=== PATIENT | male | born 1980 | race Hispanic/Latino ===

== ENCOUNTER 2019-08-19 14:03 | Emergency (ER) | payer OTHER, SELFPAY ==
[2019-08-19 14:16] VITALS: BP 135/71; PULSE 64; RESP 20; TEMP 36.9; O2SAT 99
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
== END 2019-08-19 15:05 | disposition home or self-care (01) ==
PROVIDERS: Emergency Provider Nurse Practitioner Family
DX: J02.9 Acute pharyngitis, unspecified (principal); F41.9 Anxiety disorder, unspecified; K21.9 Gastro-esophageal reflux disease without esophagitis
CPT/HCPCS: 87081; 87880; 99213; G0463

== ENCOUNTER 2019-09-29 06:54 | Emergency (ER) | payer OTHER, SELFPAY ==
[2019-09-29 06:57] VITALS: BP 129/83; PULSE 60; RESP 18; TEMP 36.1; O2SAT 100
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
[2019-09-29] MEDS: IBUPROFEN 600 MG TABLET PO (07:16)
[2019-09-29] MEDS: CLINDAMYCIN HCL 150 MG CAP 300 MG PO (07:16)
== END 2019-09-29 07:22 | disposition home or self-care (01) ==
PROVIDERS: Emergency Provider Emergency Medicine
DX: K02.9 Dental caries, unspecified (principal); F41.9 Anxiety disorder, unspecified; K21.9 Gastro-esophageal reflux disease without esophagitis
CPT/HCPCS: 99283; A9270

== ENCOUNTER 2020-02-03 15:47 | Emergency (ER) | payer OTHER, SELFPAY ==
--- NOTE | ~2020-02-03 | XR_ITS ---
EXAMINATION: XR chest 1V portable DATE: 02/03/2020 16:39 INDICATION: Cough. Chest pain. Shortness of breath. TECHNIQUE: A single frontal view of the chest was obtained on 2 radiographs. COMPARISON: Chest 2 views 01/06/2018 FINDINGS: The chest demonstrates clear lungs without pneumonia, pleural effusion, or pneumothorax. Th e heart size is normal. IMPRESSION: 1. No acute cardiopulmonary disease. Reviewed, dictated and finalized at location A.
[2020-02-03 15:51] VITALS: BP 147/82; PULSE 76; RESP 18; TEMP 35.9; O2SAT 100
--- NOTE | 2020-02-03 16:03 | ECG_ITS ---
Measurements Intervals [place] Rate: 66 P: 40 NC: 156 QRS: 10 QRSD: 106 T: 8 QT: 386 QTc: 404 Interpretive Statements SINUS RHYTHM ST ELEVATION IN ANTEROLAT/HIGH LAT LEADS- PROBABLY EARLY REPOLARIZATION BORDERLINE T WAVE ABNORMALITY- INFERIOR LEADS BORDERLINE ECG Electronically Signed On 02-03-2020 16:35:53 CDT by Uziel Mariee D.O.
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
[2020-02-03 16:10] VITALS: BP 136/68; PULSE 69; RESP 18; O2SAT 98
== END 2020-02-03 17:41 | disposition home or self-care (01) ==
LOC: ANHED 16:11
PROVIDERS: Emergency Provider Emergency Medicine
DX: J06.9 Acute upper respiratory infection, unspecified (principal); Z20.828 Contact with and (suspected) exposure to other viral communicable diseases; F41.9 Anxiety disorder, unspecified; K21.9 Gastro-esophageal reflux disease without esophagitis; R94.31 Abnormal electrocardiogram [ECG] [EKG]
CPT/HCPCS: 71045; 93005; 99284

== ENCOUNTER 2020-07-07 16:10 | Outpatient (CLI) | payer OTHER, SELFPAY ==
--- NOTE | ~2020-07-07 | CT_ITS ---
EXAMINATION: CT abdomen wo con EXAM DATE: 07/07/2020 16:37 INDICATION: Upper abdominal pain. TECHNIQUE: Spiral CT of the abdomen was performed without contrast. Axial, coronal and sagittal dory ges were reviewed. The dose-length product (DLP) for this examination was 752.25 mGy-cm. The exposu re was tailored according to patient size (auto mA exposure control), and iterative reconstruction (A SIR) was used as additional dose reduction technique. Comparison is made to prior examination from 11/03/2017. FINDINGS: The liver, spleen, adrenal glands and pancreas are unremarkable. Gallbladder is unremarkab le. No biliary obstruction. There is no nephrolithiasis or hydronephrosis. There is no retroperi toneal lymphadenopathy. The appendix is normal. The stomach and small bowel are unremarkable. There is expected amount of c olonic stool. No free intraperitoneal gas. The heart is normal in size. There are no pericardial or pleural effusions. Small scattered regions of faint bilateral peripheral predominant slightly gr oundglass opacity, atelectasis or nonspecific pneumonitis. The bones are unremarkable. IMPRESSION: Small scattered regions of lung basilar groundglass opacity, atelectasis or nonspecific p neumonitis. Difficult to exclude early COVID pneumonia given community prevalence. Reviewed, dictated and finalized at location B. RATOR INSPECTOR IMPRESSION: Small scattered regions of lung basilar groundglass opacity, atelec tasis or nonspecific pneumonitis. Difficult to exclude early COVID pneumonia gi harsh community prevalence.
== END 2020-07-07 16:11 | disposition home or self-care (01) ==
PROVIDERS: PCP Physician Assistant; Visit Provider Physician Assistant
DX: R10.9 Unspecified abdominal pain (principal); R91.8 Other nonspecific abnormal finding of lung field
CPT/HCPCS: 74150

== ENCOUNTER 2020-09-12 19:32 | Emergency (ER) | payer OTHER, SELFPAY ==
--- NOTE | ~2020-09-12 | XR_ITS ---
XR shoulder LT min 2V DATE: 09/12/2020 19:57 INDICATION: Pain for 2 days and left clavicle and proximal humerus TECHNIQUE: 4 views COMPARISON: None FINDINGS: No fracture or dislocation or. Normal alignment at the acromioclavicular and glenohumeral j oints. No abnormal soft tissue calcification. IMPRESSION: Negative Reviewed, dictated and finalized at location A. IMPRESSION: Negative
[2020-09-12 19:35] VITALS: BP 150/92; PULSE 75; RESP 16; TEMP 36.1; O2SAT 99
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
[2020-09-12 20:44] VITALS: BP 142/78; PULSE 76; RESP 18; O2SAT 99
== END 2020-09-12 20:45 | disposition home or self-care (01) ==
PROVIDERS: Emergency Provider Emergency Medicine; PCP Physician Assistant
DX: M25.512 Pain in left shoulder (principal); F41.9 Anxiety disorder, unspecified; K21.9 Gastro-esophageal reflux disease without esophagitis
CPT/HCPCS: 73030; 99283

== ENCOUNTER 2020-09-20 16:16 | Outpatient (CLI) | payer OTHER, SELFPAY ==
--- NOTE | ~2020-09-20 | XR_ITS ---
EXAMINATION: XR chest 2V 09/20/2020 16:42 INDICATION: Dyspnea. Right-sided rib pain. PROCEDURE: 2 view chest COMPARISON: Comparison to multiple prior studies sequentially, with oldest reviewed study dated 06/26. FINDINGS: The lungs are clear. The cardiomediastinal silhouette is within normal limits. There are no pleural effusions. There is no pneumothorax suspected. IMPRESSION: 1: NO ACUTE CARDIOPULMONARY DISEASE. Reviewed, dictated and finalized at location A.
== END 2020-09-20 16:17 | disposition home or self-care (01) ==
PROVIDERS: PCP Physician Assistant; Visit Provider Physician Assistant
DX: R10.11 Right upper quadrant pain (principal); R06.00 Dyspnea, unspecified
CPT/HCPCS: 71046

== ENCOUNTER 2020-09-25 10:47 | Outpatient (CLI) | payer OTHER, SELFPAY ==
[2020-09-25 11:28] LABS: Basophils Absolute Auto 0.1 K/mm3 (0.0-0.1); Basophils Percent Auto 1.2 % (0.2-1.2); Eosinophils Absolute Auto 0.1 K/mm3 (0-0.3); Eosinophils Percent Auto 1.4 % (0-4.4); Hematocrit 40.1 % (42.0-52.0); Hemoglobin 13.5 g/dL (14.0-18.0); Immature Granulocyte Absolute 0.01 K/mm3 (0.00-0.031); Immature Granulocyte Percent A 0.2 % (0-0.5); Lymphocytes Absolute Auto 2.22 K/mm3 (0.9-3.2); Lymphocytes Percent Auto 38.1 % (18.3-44.2); Mean Corpuscular HGB Conc 33.7 g/dl (32-36); Mean Corpuscular Hemoglobin 29.9 pg (26-34); Mean Corpuscular Volume 88.7 fl (80-100); Mean Platelet Volume 10.3 fl (7.4-10.4); Monocytes Absolute Auto 0.5 K/mm3 (0.1-0.6); Monocytes Percent Auto 8.4 % (2.6-8.5); Neutrophils Percent Auto 50.7 % (45.5-73.1); Platelet Count Result 277 k/mm3 (150-375); Red Blood Count 4.52 M/mm3 (4.6-6.20); Red Cell Distribution Width 12.2 % (11.5-14.5); White Blood Count 5.8 K/mm3 (4.5-10.0)
[2020-09-25 11:41] LABS: Hemoglobin A1C 5.9 % (<5.7)
[2020-09-25 11:43] LABS: Alanine Aminotransferase 33 U/L (4-50); Albumin Level 4.7 g/dL (3.5-5.1); Alkaline Phosphatase 70 U/L (38-126); Amylase 63 U/L (30-110); Anion Gap 7 mmol/L (8-16); Aspartate Amino Transferase 33 U/L (17-59); Bilirubin,Total 0.4 mg/dL (0.2-1.3); Blood Urea Nitrogen 18 mg/dL (9-20); Calcium 8.9 mg/dL (8.4-10.2); Carbon Dioxide 27 mmol/L (22-30); Chloride 106 mmol/L (98-107); Estimated Glomerular Filt Rate > 60; Glucose 103 mg/dL (75-110); Lipase 68 U/L (23-300); Potassium 4.5 mmol/L (3.4-5.0); Sodium 140 mmol/L (137-145)
== END 2020-09-25 10:48 | disposition home or self-care (01) ==
LOC: ANHLAB 10:50
PROVIDERS: PCP Physician Assistant; Visit Provider Physician Assistant
DX: R10.11 Right upper quadrant pain (principal); R73.03 Prediabetes
CPT/HCPCS: 36415; 80053; 82150; 83036; 83690; 85025

== ENCOUNTER 2020-10-07 08:04 | Outpatient (CLI) | payer OTHER, SELFPAY ==
--- NOTE | ~2020-10-07 | CT_ITS ---
EXAMINATION: CT abdomen wo con DATE: 10/07/2020 08:27 INDICATION: Abdominal pain TECHNIQUE: Computed tomography (CT) of the abdomen and pelvis was performed without intravenous contr ast. The dose-length product was 659.43 mGy-cm. Automated exposure control and iterative reconstructi on technique were employed. COMPARISON: CT dated 07/07/2020 FINDINGS: Lung bases are unremarkable. Heart size normal. No significant pleural or pericardial effus ion. The liver, spleen, pancreas, adrenal glands and kidneys are unremarkable. Gallbladder is present . Nonobstructive bowel gas pattern. No significant vascular abnormality. No lymphadenopathy. No free ai r or free fluid. Tiny fat-containing umbilical hernia. No significant bone or joint abnormality. IMPRESSION: 1. No acute abdominal abnormality. Reviewed, dictated and finalized at location A.
== END 2020-10-07 08:05 | disposition home or self-care (01) ==
LOC: ANHIMG 08:05
PROVIDERS: PCP Physician Assistant; Visit Provider Physician Assistant
DX: R10.9 Unspecified abdominal pain (principal)
CPT/HCPCS: 74150

== ENCOUNTER 2020-10-23 10:08 | Outpatient (RCR) | payer OTHER, SELFPAY ==
--- NOTE | 2020-10-23 10:59 | PTOPEVAL ---
PHYSICAL THERAPY EVALUATION AND PLAN OF CARE Thank you for referring Elie Espinoza to [facility].? The patient is scheduled to be seen for therapy? 1x/week for 4 weeks. Please review, sign, date and return this plan of care CINTHYA. I agree with and certify that the following plan of care is medically necessary. Referring Physician Date Attending Provider: Natali Mcghee, PA Evaluation Gastrointestinal History Hx Gastroesophageal Reflux Disease Yes Musculoskeletal History Hx Orthopedic Surgery Yes: left arm Hx Other Musculoskeletal Disorders Yes: herniated disk Hematological History Psychosocial History Hx Depression Yes Diagnosis left shoulder pain Onset 6months Subjective Information reports pain in the left Query Text:As Reported By Patient/ shoulder and up to the neck. Family States that both hands go numb when he sleeps. States that both shoulders hurt, but the left is worse. Since the shoulder has started bothering , he has started to get headaches. 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 Hand Dominance Right Self Report Pain Assessment Left Shoulder(s) Reported Pain Level 2 Pain Description Aching,Numbness Pain Frequency Chronic,Intermittent Lowest Pain Intensity 1 Greatest Pain Intensity 5 Other Pain Aggravating Factors lifting, carrying, work activities Pain Behaviors None Interventions Used Interventions Used By Clinicians Exercise,Joint Mobilization Pain Relief Interventions Used By None Patient Upper Extremity Range of Motion Scapular/ Shoulder Range of Motion Bilateral Shoulder Flexion - Active 115 Shoulder Abduction - Active 100 Shoulder Medial Rotation - Active L1 Query Text:Reach Behind the Back Shoulder Lateral Rotation - Active ear lobe Query Text:Reach Behind the Head Scapular/Shoulder Range of Motion Muscle Length Restriction Limitations Upper Extremity Muscle Strength Testing Scapular/Shoulder Bilateral Shoulder Flexion Strength 5 Normal Shoulder Extension Strength 5 Normal Shoulder Abduction Strength 5 Normal Shoulder Medial Rotation Strength 5 Normal Shoulder Lateral Rotation Strength 4+ Good + Muscle Length Testing Muscle Length Testing Scalene Group Muscle Length (R) Moderate Tightness,(L) Query Text: Moderate Tightness Latissmus Dorsi Muscle Length (R) Severe Tightness,(L) Severe Tightness Upper Tra
--- NOTE | 2020-11-02 07:46 | PCPTNOTE ---
Patient did not show up for scheduled appointment this date. Called and left message that his next appointment is 11/09/20 at 1000.
--- NOTE | 2020-11-09 10:22 | PCPTNOTE ---
Patient did not show up for scheduled appointment this date.
--- NOTE | 2020-11-16 07:45 | PCPTNOTE ---
Patient did not show up for scheduled appointment this date.
--- NOTE | 2020-11-16 07:46 | PCPTNOTE ---
PHYSICAL THERAPY DISCHARGE NOTE Attending Provider: Natali Mcghee, NEELAM Patient:Elie Espinoza Date of :1980 Patient has not returned for any further treatments since 10/23/2020, therefore will be discharged at this time. Patient?s initial visit was on 10/23/2020nd had a total of 1 visit. The goals have not been met. Thank you for referring this patient to [facility]. Please review, sign, date and return this discharge summary CINTHYA. I have been updated about the patient's current status and I agree with discharge from the above service at this time. Referring Physician Date
== END 2021-01-09 13:51 | disposition home or self-care (01) ==
LOC: ANHPT 10:08
PROVIDERS: PCP Physician Assistant; Visit Provider Physician Assistant
DX: M25.512 Pain in left shoulder (principal)
CPT/HCPCS: 97161

== ENCOUNTER 2021-01-13 09:02 | Emergency (ER) | payer OTHER, SELFPAY ==
[2021-01-13 09:11] VITALS: BP 133/75; PULSE 60; RESP 16; TEMP 36.7; O2SAT 99
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
== END 2021-01-13 09:50 | disposition home or self-care (01) ==
PROVIDERS: Emergency Provider Nurse Practitioner
DX: K52.9 Noninfective gastroenteritis and colitis, unspecified (principal); F41.9 Anxiety disorder, unspecified; K21.9 Gastro-esophageal reflux disease without esophagitis
CPT/HCPCS: 99213; G0463

== ENCOUNTER 2021-05-29 08:56 | Emergency (ER) | payer OTHER, SELFPAY ==
--- NOTE | ~2021-05-29 | XR_ITS ---
EXAMINATION: XR chest 1V portable DATE: 05/29/2021 10:04 INDICATION: Cough. TECHNIQUE: A single frontal view of the chest was obtained on 2 radiographs. COMPARISON: Chest 2 views 09/20/2020, CT abdomen and pelvis 10/07/2020 FINDINGS: The chest demonstrates clear lungs without pneumonia, pleural effusion, or pneumothorax. Th e heart size is normal. IMPRESSION: 1. No acute cardiopulmonary disease. Reviewed, dictated and finalized at location B. [employer] PERFORM[employer]
[2021-05-29 08:59] VITALS: BP 138/90; PULSE 85; RESP 20; TEMP 36.7; O2SAT 99
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
[2021-05-30 03:58] LABS: SARS-CoV-2 RNA PCR Negative
== END 2021-05-29 10:52 | disposition home or self-care (01) ==
PROVIDERS: Emergency Provider Emergency Medicine; PCP Physician Assistant
DX: B34.9 Viral infection, unspecified (principal); J06.9 Acute upper respiratory infection, unspecified; F41.9 Anxiety disorder, unspecified; K21.9 Gastro-esophageal reflux disease without esophagitis; Z20.822 Contact with and (suspected) exposure to COVID-19; Z88.0 Allergy status to penicillin
CPT/HCPCS: 71045; 87804; 99283; C9803; U0003; U0005

== ENCOUNTER 2021-10-03 13:45 | Emergency (ER) | payer OTHER, SELFPAY ==
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
[2021-10-03 13:53] VITALS: BP 160/101; PULSE 100; RESP 16; TEMP 36.9; O2SAT 99
[2021-10-03 14:23] VITALS: BP 146/79
== END 2021-10-03 14:17 | disposition home or self-care (01) ==
PROVIDERS: Emergency Provider Nurse Practitioner Family
DX: J02.9 Acute pharyngitis, unspecified (principal)
CPT/HCPCS: 87081; 87880; 99213; G0463

== ENCOUNTER 2021-12-15 12:08 | Emergency (ER) | payer OTHER, SELFPAY ==
[2021-12-15 12:16] VITALS: BP 136/80; PULSE 60; RESP 16; TEMP 36.6; O2SAT 98
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
== END 2021-12-15 13:13 | disposition home or self-care (01) ==
PROVIDERS: Emergency Provider Nurse Practitioner; PCP Physician Assistant
DX: J06.9 Acute upper respiratory infection, unspecified (principal); Z20.822 Contact with and (suspected) exposure to COVID-19; K21.9 Gastro-esophageal reflux disease without esophagitis; F41.9 Anxiety disorder, unspecified
CPT/HCPCS: 87081; 87426; 87880; 99213; C9803; G0463

== ENCOUNTER 2022-03-11 19:09 | Emergency (ER) | payer OTHER, SELFPAY ==
[2022-03-11 19:42] VITALS: BP 132/86; PULSE 62; RESP 16; TEMP 36.2; O2SAT 100
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
== END 2022-03-11 20:40 | disposition home or self-care (01) ==
PROVIDERS: Emergency Provider Preventive Medicine Aerospace Medicine; PCP Physician Assistant
DX: B35.6 Tinea cruris (principal); F41.9 Anxiety disorder, unspecified; K21.9 Gastro-esophageal reflux disease without esophagitis
CPT/HCPCS: 99283

== ENCOUNTER 2022-03-31 11:08 | Emergency (ER) | payer OTHER, SELFPAY ==
[2022-03-31 11:29] VITALS: BP 163/88; PULSE 70; RESP 16; TEMP 36.1; O2SAT 100
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
== END 2022-03-31 12:02 | disposition home or self-care (01) ==
PROVIDERS: Emergency Provider Nurse Practitioner Family; PCP Physician Assistant
DX: B35.6 Tinea cruris (principal); K21.9 Gastro-esophageal reflux disease without esophagitis; F41.9 Anxiety disorder, unspecified
CPT/HCPCS: 99213; G0463

== ENCOUNTER 2022-07-02 02:40 | Emergency (ER) | payer OTHER, SELFPAY ==
[2022-07-02 02:53] VITALS: BP 133/82; PULSE 70; RESP 16; TEMP 36.1; O2SAT 100
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
[2022-07-02 03:27] VITALS: BP 129/94; RESP 20
[2022-07-02 03:29] VITALS: PULSE 62; RESP 14; O2SAT 98
[2022-07-02 03:30] VITALS: PULSE 61; RESP 17; O2SAT 96
[2022-07-02] MEDS: hydrOXYzine HCL 25 MG TABLET PO (03:30)
== END 2022-07-02 03:39 | disposition home or self-care (01) ==
LOC: ANHED 03:33
PROVIDERS: Emergency Provider Emergency Medicine; PCP Physician Assistant
DX: F41.9 Anxiety disorder, unspecified (principal); K21.9 Gastro-esophageal reflux disease without esophagitis; F32.A Depression, unspecified
CPT/HCPCS: 99283; A9270

== ENCOUNTER 2022-11-17 17:40 | Emergency (ER) | payer OTHER, SELFPAY ==
--- NOTE | ~2022-11-17 | XR_ITS ---
EXAMINATION: XR abdomen obstructive series DATE: 11/17/2022 19:52 INDICATION: Rectal pressure. Mid-lower abdominal pain. TECHNIQUE: Supine and upright views of the abdomen. FINDINGS: No prior studies for comparison. The visualized lung parenchyma is normal.. There is a nonobstructive bowel gas pattern. Gas and stool are seen throughout the colon to the level of the rectum. There is no free air. IMPRESSION: 1. No acute abdominal abnormality. Reviewed, dictated and finalized at location A.
[2022-11-17 18:07] VITALS: BP 135/79; PULSE 78; RESP 16; TEMP 36.4; O2SAT 97
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
== END 2022-11-17 20:15 | disposition home or self-care (01) ==
PROVIDERS: Emergency Provider Emergency Medicine; PCP Physician Assistant
DX: K62.89 Other specified diseases of anus and rectum (principal); F41.9 Anxiety disorder, unspecified; K21.9 Gastro-esophageal reflux disease without esophagitis
CPT/HCPCS: 74019; 99283

== ENCOUNTER 2023-05-07 18:28 | Emergency (ER) | payer OTHER, SELFPAY ==
[2023-05-07 18:30] VITALS: BP 155/83; PULSE 74; RESP 16; TEMP 36.1; O2SAT 100
--- NOTE | 2023-05-08 00:15 | PC.NURSE ---
pt. to desk stating they are going home.
== END 2023-05-08 01:02 | disposition left against medical advice (07) ==
PROVIDERS: PCP Physician Assistant
DX: L98.9 Disorder of the skin and subcutaneous tissue, unspecified (principal)
CPT/HCPCS: 99199

== ENCOUNTER 2023-05-08 18:04 | Emergency (ER) | payer OTHER, SELFPAY ==
[2023-05-08 18:13] VITALS: BP 137/69; PULSE 85; RESP 18; TEMP 36.8; O2SAT 95
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
== END 2023-05-08 18:52 | disposition home or self-care (01) ==
PROVIDERS: Emergency Provider Registered Nurse; PCP Physician Assistant
DX: L02.416 Cutaneous abscess of left lower limb (principal); F41.9 Anxiety disorder, unspecified; K21.9 Gastro-esophageal reflux disease without esophagitis
CPT/HCPCS: 10060; 99213; G0463

== ENCOUNTER 2023-07-07 10:39 | Emergency (ER) | payer OTHER, SELFPAY ==
[2023-07-07 10:49] VITALS: BP 151/84; PULSE 69; RESP 16; TEMP 36.6; O2SAT 99
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
== END 2023-07-07 12:22 | disposition home or self-care (01) ==
PROVIDERS: Emergency Provider Nurse Practitioner Family; PCP Physician Assistant
DX: J06.9 Acute upper respiratory infection, unspecified (principal); R05.9 Cough, unspecified; K21.9 Gastro-esophageal reflux disease without esophagitis; F41.9 Anxiety disorder, unspecified
CPT/HCPCS: 99213; G0463

== ENCOUNTER 2023-07-13 03:10 | Emergency (ER) | payer OTHER, SELFPAY ==
[2023-07-13 03:19] VITALS: BP 157/97; PULSE 63; RESP 18; TEMP 36.6; O2SAT 97
[2023-07-13 04:40] LABS: Strep Group A RT-PCR NOT DETECTED (Negative)
[2023-07-13 04:50] LABS: Influenza A QL RT-PCR Negative (Negative); Influenza B QL RT-PCR Negative (Negative); RSV RNA, RT-PCR Negative (Negative); SARS-CoV-2 RNA PCR Negative (Negative)
[2023-07-13 05:07] VITALS: BP 140/95; PULSE 65; RESP 18; O2SAT 96
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
[2023-07-13] MEDS: KETOROLAC 15 MG/ML VIAL (*BKC) IV PUSH (06:15)
[2023-07-13 06:32] VITALS: BP 132/95; PULSE 64; RESP 20; O2SAT 98
== END 2023-07-13 06:32 | disposition home or self-care (01) ==
PROVIDERS: Emergency Provider Emergency Medicine; PCP Physician Assistant
DX: J02.9 Acute pharyngitis, unspecified (principal); Z20.822 Contact with and (suspected) exposure to COVID-19; F41.9 Anxiety disorder, unspecified; K21.9 Gastro-esophageal reflux disease without esophagitis
CPT/HCPCS: 87637; 87651; 96374; 99284; J1100; J1885

== ENCOUNTER 2024-01-06 12:14 | Emergency (ER) | payer OTHER, SELFPAY ==
--- NOTE | ~2024-01-06 | XR_ITS ---
XR wrist LT min 3V Ordering provider: Joan Sierra APRN History: . twisting injury t-1 . Comparison: None. FINDINGS: BONES: No acute fracture or dislocation. No definite scaphoid fracture. JOINT SPACES: Well maintained. SOFT TISSUES: Normal. IMPRESSION: No acute osseous abnormality left wrist. Reviewed, dictated and finalized at location A.
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
[2024-01-06 12:29] VITALS: BP 153/81; PULSE 69; RESP 18; TEMP 36.8; O2SAT 98
== END 2024-01-06 13:10 | disposition home or self-care (01) ==
PROVIDERS: Emergency Provider Nurse Practitioner; PCP Physician Assistant
DX: S63.502A Unspecified sprain of left wrist, initial encounter (principal); S66.912A Strain of unspecified muscle, fascia and tendon at wrist and hand level, left hand, initial encounter; X58.XXXA Exposure to other specified factors, initial encounter; K21.9 Gastro-esophageal reflux disease without esophagitis; F41.9 Anxiety disorder, unspecified
CPT/HCPCS: 73110; 99213; G0463

== ENCOUNTER 2024-03-04 20:38 | Emergency (ER) | payer OTHER, SELFPAY ==
--- NOTE | ~2024-03-04 | XR_ITS ---
EXAMINATION: XR chest 2V DATE: 03/04/2024 21:16 INDICATION: Left chest pain. Shortness of breath. TECHNIQUE: Frontal and lateral views of the chest were obtained. COMPARISON: Chest single view 05/29/2021 FINDINGS: There is no pneumonia, pleural effusion, or pneumothorax. The heart size is normal. IMPRESSION: 1. No acute cardiopulmonary disease. Reviewed, dictated and finalized at location A.
[2024-03-04 21:00] VITALS: BP 140/85; PULSE 67; RESP 15; TEMP 36.3; O2SAT 99
--- NOTE | 2024-03-04 21:03 | ECG_ITS ---
Test Date: 2024-03-04 21:06:52 Measurements Intervals Continental Rate: 64 P: 38 AR: 153 QRS: 4 QRSD: 105 T: 22 QT: 388 QTc: 402 Interpretive Statements SINUS RHYTHM MODERATE VOLTAGE CRITERIA FOR LVH, CONSIDER NORMAL VARIANT [MEETS CRITERIA IN ONE OF: R(aVL), S(V1), R(V5), R(V5/V6)+S(V1)] NONSPECIFIC T-WAVE ABNORMALITY No previous ECG available for comparison Electronically Signed On 03-05-2024 10:39:22 CDT by Thanh Orta M.D.
[2024-03-04 21:18] LABS: Basophils Absolute Auto 0.1 K/mm3 (0.0-0.1); Basophils Percent Auto 1.2 % (0.2-1.2); Eosinophils Absolute Auto 0.1 K/mm3 (0-0.3); Hematocrit 40.7 % (42.0-52.0); Hemoglobin 13.7 g/dL (14.0-18.0); Immature Granulocyte Absolute 0.01 K/mm3 (0.00-0.031); Immature Granulocyte Percent A 0.2 % (0-0.5); Lymphocytes Percent Auto 42.1 % (18.3-44.2); Mean Corpuscular HGB Conc 33.7 g/dl (32-36); Mean Corpuscular Hemoglobin 30.2 pg (26-34); Mean Corpuscular Volume 89.8 fl (80-100); Mean Platelet Volume 10.7 fl (7.4-10.4); Monocytes Absolute Auto 0.6 K/mm3 (0.1-0.6); Monocytes Percent Auto 9.4 % (2.6-8.5); Neutrophils Absolute Auto 2.7 K/mm3 (1.3-6.7); Neutrophils Percent Auto 45.1 % (45.5-73.1); Platelet Count Result 255 k/mm3 (150-375); Red Blood Count 4.53 M/mm3 (4.6-6.20); Red Cell Distribution Width 12.4 % (11.5-14.5); White Blood Count 5.9 K/mm3 (4.5-10.0)
[2024-03-04 21:29] LABS: Alanine Aminotransferase 38 U/L (6-50); Albumin Level 4.8 g/dL (3.5-5.1); Alkaline Phosphatase 66 U/L (38-126); Anion Gap 6 mmol/L (4-12); Aspartate Amino Transferase 36 U/L (17-59); Bilirubin,Total 0.4 mg/dL (0.2-1.3); Blood Urea Nitrogen 21 mg/dL (9-20); Calcium 9.1 mg/dL (8.4-10.2); Carbon Dioxide 28 mmol/L (22-30); Chloride 102 mmol/L (98-107); Estimated CRCL calculation 87 ml/min; Estimated Glomerular Filt Rate > 60; Glucose 114 mg/dL (65-110); Lipase 99 U/L (23-300); Potassium 4.1 mmol/L (3.4-5.0); Sodium 136 mmol/L (137-145)
[2024-03-04 21:32] LABS: Partial Thromboplastin Time 23.3 Seconds (22.3-36.8)
[2024-03-04 21:41] LABS: Troponin I < 0.012 ng/mL (0.000-0.034)
[2024-03-05 00:06] VITALS: BP 137/85; PULSE 66; RESP 16; TEMP 36.4; O2SAT 99
--- NOTE | 2024-03-05 00:10 | ECG_ITS ---
Test Date: 2024-03-05 00:10:12 Measurements Intervals [place] Rate: 56 P: 51 NH: 162 QRS: 2 QRSD: 106 T: 18 QT: 415 QTc: 401 Interpretive Statements SINUS BRADYCARDIA MODERATE VOLTAGE CRITERIA FOR LVH, CONSIDER NORMAL VARIANT [MEETS CRITERIA IN ONE OF: R(aVL), S(V1), R(V5), R(V5/V6)+S(V1)] Compared to ECG 03/04/2024 21:06:52 Sinus rhythm no longer present T-wave abnormality no longer present Electronically Signed On 03-05-2024 10:40:14 CDT by Thanh Orta M.D.
[2024-03-05 00:42] LABS: Troponin I < 0.012 ng/mL (0.000-0.034)
[2024-03-05 01:00] VITALS: BP 136/92; PULSE 58; RESP 18; O2SAT 98
[2024-03-05 01:01] VITALS: PULSE 58
[2024-03-05 02:24] VITALS: O2SAT 96
[2024-03-05] MEDS: SODIUM CHLORIDE 0.9% IV 1,000 ML 999 ML IV CONT (02:41)
[2024-03-05 02:43] VITALS: BP 122/80; PULSE 61; RESP 19; O2SAT 98
[2024-03-05] MEDS: PROCHLORPERAZINE EDISYLATE 10 MG/2 ML VIAL IV PUSH (02:43)
[2024-03-05] MEDS: diphenhydrAMINE HCl INJ 50 MG/ML VIAL IV PUSH (02:43)
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
[2024-03-05 03:44] LABS: Troponin I < 0.012 ng/mL (0.000-0.034)
== END 2024-03-05 04:12 | disposition home or self-care (01) ==
PROVIDERS: Emergency Provider Emergency Medicine; PCP Physician Assistant
DX: R07.89 Other chest pain (principal); R51.9 Headache, unspecified; K21.9 Gastro-esophageal reflux disease without esophagitis; F41.9 Anxiety disorder, unspecified; R94.31 Abnormal electrocardiogram [ECG] [EKG]; R00.1 Bradycardia, unspecified
CPT/HCPCS: 36415; 71046; 80053; 83690; 84484; 85025; 85610; 85730; 93005; 96361; 96374; 96375; 99284; J0780; J1200; J7030

== ENCOUNTER 2024-10-15 14:12 | Emergency (ER) | payer OTHER, SELFPAY ==
--- NOTE | ~2024-10-15 | CT_ITS ---
CT abdomen pelvis wo con Ordering provider: Elenita Aquino History: 43 years Male with . flank pain . Comparison: None. Technique: CT abdomen and pelvis without IV and without oral contrast. Automated exposure control and iterative reconstruction technique were employed. The dose-length product was 517.75 mGy-cm. Findings: VISUALIZED LOWER CHEST: Dependent atelectatic changes. UPPER ABDOMINAL ORGANS: Liver: Normal. Gallbladder: Contracted. Spleen: Normal. Stomach/duodenum: Normal. Pancreas: Normal. Adrenals: Normal. Kidneys: Normal. PELVIC ORGANS: The bladder is normal. BOWEL AND MESENTERY: Colon: No evidence of diverticulitis.. Fecal material is loaded in the colon. Normal appendix. Small Bowel: Normal. No obstruction. Peritoneum/mesentery: No free air or free fluid. No mesenteric lymphadenopathy. RETROPERITONEUM: Normal aorta. No retroperitoneal lymphadenopathy. MUSCULOSKELETAL: Superficial soft tissues: Small left fat-containing inguinal hernia. Otherwise, The superficial soft tissues are normal. Bones: Age appropriate degenerative changes of the spine. Sclerotic lesion in the posterior right reynold tabulum. IMPRESSION: 1. No evidence of appendicitis, diverticulitis or intestinal obstruction. No kidney stones. 2. Constipation. Reviewed, dictated and finalized at location A. IMPRESSION: 1. No evidence of appendicitis, diverticulitis or intestinal obstruction. No k idney stones. 2. Constipation.
--- OUTSIDE RECORDS SUMMARY | 2024-10-15 14:15 | XMS_ITS | Patient Health Record ---
Author Organization [facility] Address [address] [place] [address] Care Team Providers Care Courtroom Reporter Name Role Phone Franc Dickinson Primary Care Provider Reason For Referral No Information Immunizations Vaccine Route Administration Date Status Comme nts COVID-19 Moderna 1ST IM Intramuscular 09/07/2020 Administe red COVID-19 Moderna 2nd IM Intramuscular 10/05/2020 Administe red Plan Of Treatment No Information
--- OUTSIDE RECORDS SUMMARY | 2024-10-15 14:15 | XMS_ITS | Clinical Summary ---
Author Organization 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 Gender Identity Not on file Sexual Orientation Not on file Plan of Treatment Health Maintenance Due Date Last Done Comments Hepatitis C Virus (HCV) Screening 1981 TdaP Immunization 1981 Hepatitis B Immunization (1 of 3 - 19+ 3-dose series) 2000 Influenza Immunization (#1) 2024 SARS-COV-2 Immunization ( - 2023-25 season) 2024 Respiratory Syncytial Virus (RSV) Immunization (Adult) (1 - 1-dose 75+ series) 2056 Meningococcal Immunization (ACWY) Aged Out No longer eligible based on patient's age to complete this topic Pneumococcal Immunization Combined Aged Out No longer eligible based on patient's age to complete this topic Rotavirus Immunization Aged Out No lo nger eligible based on patient's age to complete this topic
[2024-10-15 14:56] VITALS: BP 144/82; PULSE 69; RESP 16; TEMP 36.2; O2SAT 100
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
[2024-10-15 21:10] LABS: Basophils Absolute Auto 0.1 K/mm3 (0.0-0.1); Basophils Percent Auto 0.8 % (0.2-1.2); Eosinophils Absolute Auto 0.1 K/mm3 (0-0.3); Eosinophils Percent Auto 1.6 % (0-4.4); Hematocrit 41.9 % (42.0-52.0); Hemoglobin 13.3 g/dL (14.0-18.0); Immature Granulocyte Absolute 0.01 K/mm3 (0.00-0.031); Immature Granulocyte Percent A 0.2 % (0-0.5); Lymphocytes Absolute Auto 2.71 K/mm3 (0.9-3.2); Lymphocytes Percent Auto 42.4 % (18.3-44.2); Mean Corpuscular HGB Conc 31.7 g/dl (32-36); Mean Corpuscular Hemoglobin 29.1 pg (26-34); Mean Corpuscular Volume 91.7 fl (80-100); Mean Platelet Volume 10.6 fl (7.4-10.4); Monocytes Absolute Auto 0.6 K/mm3 (0.1-0.6); Monocytes Percent Auto 9.5 % (2.6-8.5); Neutrophils Absolute Auto 2.9 K/mm3 (1.3-6.7); Neutrophils Percent Auto 45.5 % (45.5-73.1); Platelet Count Result 243 k/mm3 (150-375); Red Blood Count 4.57 M/mm3 (4.6-6.20); Red Cell Distribution Width 12.4 % (11.5-14.5); White Blood Count 6.4 K/mm3 (4.5-10.0)
[2024-10-15 21:21] LABS: Alanine Aminotransferase 34 U/L (6-50); Albumin Level 4.8 g/dL (3.5-5.1); Alkaline Phosphatase 65 U/L (38-126); Anion Gap 9 mmol/L (4-12); Aspartate Amino Transferase 32 U/L (17-59); Bilirubin,Total 0.4 mg/dL (0.2-1.3); Blood Urea Nitrogen 19 mg/dL (9-20); Calcium 9.1 mg/dL (8.4-10.2); Carbon Dioxide 27 mmol/L (22-30); Chloride 104 mmol/L (98-107); Estimated CRCL calculation 136 ml/min; Estimated Glomerular Filt Rate > 60; Glucose 97 mg/dL (65-110); Potassium 4.3 mmol/L (3.4-5.0); Sodium 140 mmol/L (137-145)
[2024-10-15 21:30] LABS: Add Urine Microscopic? YES; Appearance Urine Clear (Clear); Bilirubin Urine Negative (Negative); Blood Urine Negative (Negative); Glucose Urine UA 1+ mg/dL (Negative); Ketones Urine Negative (Negative); Leukocyte Esterase Ur Negative LEU/UL (Negative); Nitrate Urine Negative (Negative); Protein Urine Negative (Negative); Specific Grav Ur 1.026 (1.001-1.035)
[2024-10-15 21:32] LABS: Color Urine Light Orange (Yellow)
--- OUTSIDE RECORDS SUMMARY | 2024-10-15 21:47 | XMS_ITS | Clinical Summary ---
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
[2024-10-15] MEDS: LACTATED RINGERS 1,000 ML 999 ML IV CONT ×2 (21:59)
[2024-10-15 22:00] LABS: Creatine Kinase 154 U/L (55-170)
[2024-10-16 00:42] VITALS: BP 122/81; PULSE 55; RESP 16; TEMP 36.5; O2SAT 98
== END 2024-10-16 00:21 | disposition home or self-care (01) ==
PROVIDERS: Emergency Medicine; Emergency Provider Student in an Organized Health Care Education/Training Program; PCP Physician Assistant
DX: E86.0 Dehydration (principal); K21.9 Gastro-esophageal reflux disease without esophagitis; F41.9 Anxiety disorder, unspecified
CPT/HCPCS: 36415; 74176; 80053; 81001; 82550; 85025; 96360; 99284; J7120

== ENCOUNTER 2024-12-06 18:58 | Emergency (ER) | payer OTHER, SELFPAY ==
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
[2024-12-06 19:27] LABS: EDCOVIDSCREEN Negative (Negative); EDINFLUASCREEN Negative (Negative); EDINFLUBSCREEN Negative (Negative); EDSTREPNEGPOS1 Negative (Negative)
== END 2024-12-06 19:35 | disposition home or self-care (01) ==
PROVIDERS: Emergency Provider Nurse Practitioner; PCP Physician Assistant
DX: J06.9 Acute upper respiratory infection, unspecified (principal); Z20.822 Contact with and (suspected) exposure to COVID-19; K21.9 Gastro-esophageal reflux disease without esophagitis; F41.9 Anxiety disorder, unspecified
CPT/HCPCS: 87081; 87426; 87804; 87880; 99213; G0463

== ENCOUNTER 2024-12-09 14:12 | Emergency (ER) | payer OTHER, SELFPAY ==
--- NOTE | ~2024-12-09 | XR_ITS ---
XR chest 2V Ordering provider: Shannon Lorenz History: 43 years Male with . cough . Comparison: March 04, 2024 FINDINGS: MEDIASTINUM: The cardiac silhouette is not enlarged. LUNGS: No infiltrates, effusions or pneumothorax. OTHER: No free air under the diaphragm. Degenerative changes of the spine. IMPRESSION: No acute cardiopulmonary pathology. Reviewed, dictated and finalized at location A.
--- OUTSIDE RECORDS SUMMARY | 2024-12-09 14:15 | XMS_ITS | Clinical Summary ---
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 Brusher Operator Name Role Phone Natali Mcghee Primary Care Provider + Allergies Active Allergy Reactions Criticality Noted Date Comments Penicillins Other (See comments),Stomach upset Low 07/26/2011 Stomach/GI Upset unknown Medications acetaminophen (TYLENOL) 500 mg tablet Take 1 tablet (500 mg total) by mouth every 6 (six) hours as needed for pain 30 tablet 10/19/2024 Active cyclobenzaprine (FLEXERIL) 10 mg tablet Take 1 tablet (10 mg total) by mouth 2 (two) times a day as needed for muscle spasms 20 tablet 10/19/2024 Active Encounters Date Type Department Care Team Description 10/19/2024 4:12 PM CDT - 10/19/2024 6:35 PM CDT Emergency [facility] Emergency Department [address] [place] [id number] Acute bilateral low back pain without sciatica (Primary Dx) Discharge Disposition: Discharge to home or self care from Last 3 Months Social History Tobacco Use Types Packs/Day Years Used Date Smoking Tobacco: Never Assessed Personal Safety Answer Date Recorded Have you ever been in or are you currently in a harmful physical or emotional relationship or is someone making you feel afraid or unsafe? 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 Gender Identity Not on file Sexual Orientation Not on file Last Filed Vital Signs Vital Sign Reading Time Taken Comments Blood Pressure 132/85 10/19/2024 6:20 PM CDT Pulse 67 10/19/2024 6:20 PM CDT Temperature 37 C (98.6 F) 10/19/2024 3:03 PM CDT Respiratory Rate 18 10/19/2024 6:20 PM CDT Oxygen Saturation 97% 10/19/2024 6:20 PM CDT Inhaled Oxygen Concentration - - Weight 121.5 kg (267 lb 13.7 oz) 10/19/2024 3:03 PM CDT Height - - Body Mass Index - - Plan of Treatment Health Maintenance Due Date Last Done Comments Depression Screening 1981 Hepatitis C Screening 1981 DTaP/Tdap/Td Vaccine (1 - Tdap) 1992 Varicella Vaccines (1 of 2 - 13+ 2-dose series) 1994 Hepatitis B Screening 12/14/1999 Regular Well Visit/Exam 18-64 12/14/1999 Covid-19 Vaccine (3 - 2023-2 5 season) 2024 10/05/2020, 09/07/2020 Influenza Vaccine (Season Ended) 2025 HPV Vaccines Aged Out No longer eligi ble based on patient's age to complete this topic Pneumococcal vaccine <65 Aged Out No longer eligible based on patient's age to complete this topic Procedures Procedure Name Priority Date/Time Associated Diagnosis Comments TROPONIN T HIGH-SENSITIVITY 2-HOUR Timed 10/19/2024 5:31 PM CDT N. GONORRHOEAE/C. TRACHOMATIS AMPLIFICATION STAT 10/19/2024 4:[address] ABDOMEN PELVIS WO CONTRAST ED 10/19/2024 4:07 PM CDT URINALYSIS AND REFLEX TO MICROSCOPIC AND CULTURE STAT 10/19/2024 3:14 PM CDT TROPONIN T HIGH-SENSITIVITY SERIES (BASELINE, 2HR, 4HR, 6HR) STAT 10/19/2024 3:12 PM CDT EGFR STAT 10/19/2024 3:12 PM CDT DIFFERENTIAL AUTO STAT 10/19/2024 3:1 2 PM CDT LIPASE STAT 10/19/2024 3:12 PM CDT COMPREHENSIVE METABOLIC PANEL STAT 10/19/2024 3:12 PM CDT CBC WITH AUTO DIFFERENTIAL STAT 10/19/2024 3:12 PM CDT ECG 12-LEAD STAT 10/19/2024 3:11 PM CDT from Last 3 Months Results * Troponin T high-sensitivity 2-hour (10/19/2024 5:31 PM CDT) Pathologist [facility] Trop T hs 7 <=22 ng/L Comment: Interpretive Data For further hscTnT resources including the diagnostic algorithm and an aid in interpretation, copy and paste this link: https://nrl.testcatalog.org/show/hsTrop Current Interpretive Data last revised 2020. Testing performed by: [address] [address] Trop T hs delta 1 ng/L EDMUND ROB Comment:Testing performed by : [address] [address] Trop T hs interp Insignificant EDMUND ROB Comment:Testing performed by : [address] [address] Blood 10/19/2024 5:31 PM CDT 10/19/2024 5:35 PM CDT us Mala RICHTER LAB BLOOD ORDERABLES Final Resu lt EDMUND ROB [address] [facility] Department [place] [address] * N. gonorrhoeae/C. trachomatis Amplification Urine (10/19/2024 4:45 PM CDT) [facility] C. trachomatis Not Detected Not Detected Comment:Testing performed by : [address] [address] N. gonorrhoeae Not Detected Not Detected EDMUND ROB Comment: Interpretive Data This assay detects Chlamydia trachomatis and Neisseria gonorrhoeae by nucleic acid amplification testing (NAAT). This assay has been cleared by the [place] Food and Drug administration. The performance characteristics of this test have been verified by the [facility]. The performance characteristics of this test have not been evaluated in individuals less than 14 years of age. Current Interpretive Data last revised 2023. Testing performed by: [facility], [address] [place] [address]., [address] Urine (None) 10/19/2024 4:45 PM CDT 10/19/2024 4:53 PM CDT [place] Nena RICHTER LAB MICROBIOLOGY - GEN ERAL ORDERABLES Final Result EDMUND [address] [facility] Department [place] [address] * CT Abdomen Pelvis WO Contrast (10/19/2024 4:07 PM CDT) Anatomical Region Laterality Modality Body N/A Computed Tomogra phy 10/19/2024 4:40 PM CDT Narrative 10/19/2024 4:45 PM CDT EXAM DESCRIPTION: CT ABDOMEN PELVIS WO CONTRAST REASON FOR STUDY: Abdominal/flank pain, stone suspected Bilat Abdominal/flank pain, stone suspected TECHNIQUE: CT scan of the abdomen and pelvis performed without intravenous and without oral contrast using helical scanning technique. Reconstructed coronal and sagittal MPR images reviewed. All images stored on PACS. Automated exposure control was used as a dose optimization technique for this examination. COMPARISON: CT abdomen and pelvis 07/26/2011 FINDINGS: The sensitivity for detection of visceral lesions is diminished without the use of intravenous contrast. LOWER CHEST: No significant pulmonary abnormalities. No effusion. Gynecomastia. LIVER: Normal size. Mild diffuse hepatic steatosis. GALLBLADDER: No stones identified. No wall thickening or inflammatory changes. BILE DUCTS: No intrahepatic or extrahepatic ductal dilatation. SPLEEN: Normal size. No focal lesions. PANCREAS: Unremarkable for noncontrast technique. ADRENALS: Normal. KIDNEYS/URINARY TRACT: No identified significant cystic or solid masses. No stones. No hydronephrosis or hydroureter. Urinary bladder is unremarkable. GI: No dilated bowel loops. No obvious wall thickening. Normal appendix. Scattered diverticular disease without diverticulitis. PERITONEUM: No ascites or free air. RETROPERITONEUM: No lymphadenopathy by CT criteria. There are a few prominent retroperitoneal lymph nodes measuring up to 8 mm in short axis which are likely reactive. REPRODUCTIVE: No significant abnormality. VASCULATURE: No abdominal aortic aneurysm. MUSCULOSKELETAL: Moderate degenerative disease at L5-S1. left L5-S1 neural foraminal stenosis. No acute fracture. OTHER: Trace fat containing left inguinal hernia. IMPRESSION: No acute abnormality in the abdomen or pelvis. No evidence of renal calculi or hydronephrosis. Mild hepatic steatosis. Mild colonic diverticulosis. THIS IS AN ELECTRONICALLY VERIFIED FINAL REPORT 10/19/2024 4:45 PM - Electronically signed by Stu Romero M.D. MM: MM Report ID: [id number] Reading Location: [id number] Procedure Note Stu Romero MD - 10/19/2024 EXAM DESCRIPTION: CT ABDOMEN PELVIS WO CONTRAST REASON FOR STUDY: Abdominal/flank pain, stone suspected Bilat Abdominal/flank pain, stone suspected TECHNIQUE: CT scan of the abdomen and pelvis performed without intravenousand without oral contrast using helical scanning technique. Reconstructed coronal and sagittal MPR images reviewed. All images stored on PACS.Automated exposure control was used as a dose optimization technique for this examination. COMPARISON: CT abdomen and pelvis 07/26/2011 FINDINGS: The sensitivity for detection of visceral lesions is diminished without the use of intravenous contrast. LOWER CHEST: No significant pulmonary abnormalities. No effusion. Gynecomastia. LIVER: Normal size. Mild diffuse hepatic steatosis. GALLBLADDER: No stones identified. No wall thickening or inflammatory changes. BILE DUCTS: No intrahepatic or extrahepatic ductal dilatation. SPLEEN: Normal size. No focal lesions. PANCREAS: Unremarkable for noncontrast technique. ADRENALS: Normal. KIDNEYS/URINARY TRACT: No identified significant cystic or solid masses.No stones. No hydronephrosis or hydroureter. Urinary bladder isunremarkable. GI: No dilated bowel loops. No obvious wall thickening. Normal appendix. Scattered diverticular disease without diverticulitis. PERITONEUM: No ascites or free air. RETROPERITONEUM: No lymphadenopathy by CT criteria. There are a few prominent retroperitoneal lymph nodes measuring up to 8 mm in short axiswhich are likely reactive. REPRODUCTIVE: No significant abnormality. VASCULATURE: No abdominal aortic aneurysm. MUSCULOSKELETAL: Moderate degenerative disease at L5-S1. left L5-C2fqjevy foraminal stenosis. No acute fracture. OTHER: Trace fat containing left inguinal hernia. IMPRESSION: No acute abnormality in the abdomen or pelvis. No evidence of renal calculi or hydronephrosis. Mild hepatic steatosis. Mild colonic diverticulosis. THIS IS AN ELECTRONICALLY VERIFIED FINAL REPORT 10/19/2024 4:45 PM - Electronically signed by Stu Romero M.D. MM: MM Report ID: [id number] Reading Location: [place] [address] Mala RICHTER [facility] [place]ED[place] Final Result * (ABNORMAL) Urinalysis reflex to microscopic and culture Urine (10/19/2024 3:14 PM CDT) Color, ur Straw Yellow Comment:Testing performed by : [address] [address] Clarity, ur Clear Clear EDMUND Comment:Testing performed by : [address] [address] Specific gravity, ur 1.017 1.003 - 1.030 EDMUND Comment:Testing performed by : [address] [address] pH, urine 7.0 EDMUND Comment: Interpretive Data U rine pH is affected by diet, medications, systemic acid-base disturbances, and renal tubular function. pH may affect urinary stone formation. For example, urine pH below 6.0 may help reduce the tendency for calcium phosphate stones and pH greater than 6.0 may reduce the tendency for uric acid stone formation. Source: [employer] Current Interpretive Data was last revised on 2017 Testing performed by: [address] [address] Protein, ur ql Negative Negative EDMUND Comment:Testing performed by : [facility], [address] [place] [address], [place]., [address] Glucose, ur ql 3+(A) Negative EDMUND Comment:Testing performed by : [address], [place]., [address] Ketones, ur Negative Negative EDMUND Comment:Testing performed by : [address], [place]., [address] Bilirubin, ur Negative Negative EDMUND Comment:Testing performed by : [address], [place]., [address] Blood, ur Negative Negative EDMUND Comment:Testing performed by : [address], [place]., [address] Urobilinogen, ur <2.0 <2.0 mg/dL EDMUND Comment:Testing performed by : [address], [place]., [address] Nitrite, ur Negative Negative EDMUND Comment:Testing performed by : [address], [place]., [address] Leukocyte esterase, ur Negative Negative EDMUND Comment:Testing performed by : [address], [place]., [address] UA reflex comment Reflex conditions for microscopic UA and culture not met. EDMUND Comment:Testing performed by : [address], [place]., [address] Urine 10/19/2024 3:14 PM CDT 10/19/2024 3:17 PM CDT Mala RICHTER LAB MICROBIOLOGY - GENERAL ORDJosefina RUSSO Final Result EDMUND [address] [facility] Department [place] [address] * Troponin T high-sensitivity series (baseline, 2hr, 4hr, 6hr) (10/19/2024 3:12 PM CDT) Trop T hs <6 <=22 ng/L Comment: Interpretive Data For further hscTnT resources including the diagnostic algorithm and an aid in interpretation, copy and paste this link: https://nrl.testcatalog.org/show/hsTrop Current Interpretive Data last revised 2020. Testing performed by: [address] [address] Blood 10/19/2024 3:12 PM CDT 10/19/2024 3:17 PM CDT Mala RICHTER LAB BLOOD ORDERABLES Final Resu lt Performing Organization Address [facility] Co de Phone Number EDMUND [address] [email or web address] [address] * eGFR (10/19/2024 3:12 PM CDT) eGFR >90 >=60 mL/min/1. 73 m2 Comment: Interpretive Data Reference Interval Normal >/= 90 mL/min/1.73m2 Mildly decreased* 60 - 89 mL/min/1.73m2 Mildly to moderately decreased 45 - 59 mL/min/1.73m2 Moderately to severely decreased 30 - 44 mL/min/1.73m2 Severely decreased 15 - 29 mL/min/1.73m2 Kidney Failure < 15 mL/min/1.73m2 *Relative to young adult level Estimated glomerular filtration rate is determined by the 2020 CKD-EPI equation recommended by the National Kidney Foundation (A Unifying Approach to GFR Estimation: Recommendations of the NKF-ASK Task Force on Reassessing the Inclusion of Race in Diagnosing Kidney Disease, JASN 2020). The CKD-EPI equation should not be used for patients with unstable renal function and has not been validated in children and those over 70. Current interpretive data was last reviewed 2021. Testing performed by: [address] [address] Blood 10/19/2024 3:12 PM CDT 10/19/2024 3:17 PM CDT Mala RICHTER LAB BLOOD ORDERABLES Final Resu lt Performing Organization Address City/[facility]/ZIP Co de Phone Number EDMUND [address] [place] [address] * Differential, auto (10/19/2024 3:12 PM CDT) Neutrophil abs 4.11 1.50 - 6.50 K/cumm Comment:Testing performed by : [address] [address] Imm gran abs 0.02 0.00 - 0.10 K/cumm EDMUND Comment:Testing performed by : [address] [address] Lymphocyte abs 2.16 0.80 - 3.30 K/cumm [facility] Comment:Testing performed by : [address] [address] Monocyte abs 0.59 0.20 - 0.80 K/cumm [facility] Comment:Testing performed by : [address] [address] Eosinophil abs 0.08 0.00 - 0.50 K/cumm [facility] Comment:Testing performed by : [address] [address] Basophil abs 0.07 0.00 - 0.10 K/cumm [facility] Comment:Testing performed by : [address] [address] Neutrophil pct 58.5 % [facility] Comment: Interpretive Data Percent cell count reference ranges are not reported, since discordance with absolute values may lead to misinterpretation of CBC data. Current Interpretive Data was last revised on 2017. Testing performed by: [address] [address] Imm gran pct 0.3 % [facility] Comment: Interpretive Data Percent cell count reference ranges are not reported, since discordance with absolute values may lead to misinterpretation of CBC data. Current Interpretive Data was last revised on 2017. Testing performed by: [address] [address] Lymphocyte pct 30.7 % [facility] Comment: Interpretive Data Percent cell count reference ranges are not reported, since discordance with absolute values may lead to misinterpretation of CBC data. Current Interpretive Data was last revised on 2017. Testing performed by: [address] [address] Monocyte pct 8.4 % EDMUND Comment: Interpretive Data Percent cell count reference ranges are not reported, since discordance with absolute values may lead to misinterpretation of CBC data. Current Interpretive Data was last revised on 2017. Testing performed by: [address] [address] Eosinophil pct 1.1 % EDMUND Comment: Interpretive Data Percent cell count reference ranges are not reported, since discordance with absolute values may lead to misinterpretation of CBC data. Current Interpretive Data was last revised on 2017. Testing performed by: [address] [address] Basophil pct 1.0 % EDMUND Comment: Interpretive Data Percent cell count reference ranges are not reported, since discordance with absolute values may lead to misinterpretation of CBC data. Current Interpretive Data was last revised on 2017. Testing performed by: [address] [address] Blood 10/19/2024 3:12 PM CDT 10/19/2024 3:17 PM CDT Mala RICHTER LAB BLOOD ORDERABLES Final Resu lt [facility] [address] [facility] Department of Laboratories [place], [place] [id number] * CBC with auto differential (10/19/2024 3:12 PM CDT) WBC 7.03 3.80 - 9.90 K/cumm Comment:Testing performed by : [address] [address] Hgb 14.4 13.0 - 17.5 g/dL EDMUND ROB Comment:Testing performed by : [address] [address] Hct 41.8 38.9 - 50.3 % EDMUND Comment:Testing performed by : [address] [address] Plt 244 150 - 400 K/cumm EDMUND Comment:Testing performed by : [address], [address] MPV 10.5 9.1 - 12.3 fL EDMUND Comment:Testing performed by : [address] [address] RBC 4.89 4.30 - 5.80 M/cumm EDMUND Comment:Testing performed by : [address] [address] MCV 85.5 81.3 - 96.4 fL EDMUND Comment:Testing performed by : [address], [address] MCH 29.4 27.1 - 33.3 pg EDMUND Comment:Testing performed by : [address], [address] MCHC 34.4 32.3 - 35.7 g/dL EDMUND Comment:Testing performed by : [address], [address] RDW CV 12.2 11.1 - 14.9 % EDMUND Comment:Testing performed by : [address], [address] RDW SD 37.8 35.7 - 48.1 fL EDMUND Comment:Testing performed by : [address], [address] NRBC abs 0.00 0.00 - 0.01 K/cumm EDMUND Comment:Testing performed by : [address], [address] Blood Venous blood specimen / Unknown 10/19/2024 3:12 PM CDT 10/19/2024 3:17 PM CDT us Mala RICHTER LAB BLOOD ORDERABLES Final Resu lt EDMUND [address] [facility] Department [place] [address] * Lipase (10/19/2024 3:12 PM CDT) Lipase 32 10 - 99 Units/L Comment:Testing performed by : [address] [address] Blood Venous blood specimen / Unknown 10/19/2024 3:12 PM CDT 10/19/2024 3:17 PM CDT Mala RICHTER LAB BLOOD ORDERABLES Final Resu lt [facility] [address] [facility] [place] [address] * (ABNORMAL) Comprehensive metabolic panel (10/19/2024 3:12 PM CDT) Pathologist [facility] Sodium 140 135 - 145 mmol/L Comment:Testing performed by : [address] [address] Potassium, pl 3.9 3.3 - 4.9 mmol/L EDMUND Comment:Testing performed by : [address] [address] Chloride 103 97 - 110 mmol/L EDMUND Comment:Testing performed by : [address] [address] CO2 25 22 - 32 mmol/L EDMUND Comment:Testing performed by : [address] [address] Anion gap 12 2 - 15 mmol/L EDMUND Comment:Testing performed by : [address] [address] BUN 16 6 - 25 mg/dL EDMUND Comment:Testing performed by : [address] [address] Creatinine 0.70(L) 0.80 - 1.30 mg/dL EDMUND Comment:Testing performed by : [address] [address] Glucose 136 70 - 199 mg/dL EDMUND Comment: Interpretive Data Fasting glucose >/= 126 mg/dl is diagnostic for diabetes. Fasting is defined as no caloric intake for at least 8 hours. Fasting glucose between 100 mg/dl to 125 mg/dl is diagnostic of prediabetes. In a patient with classic symptoms of hyperglycemia or hyperglycemic crisis, a random glucose >/= 200 mg/dl is diagnostic for diabetes. In the absence of unequivocal hyperglycemia, results should be confirmed by repeat testing. The classification and Diagnosis of Diabetes Diabetes Care 202; 46: S19-S40. Current interpretive data was last revised 2022. Testing performed by: [address] [address] Calcium 9.3 8.5 - 10.3 mg/dL EDMUND Comment:Testing performed by : [address] [address] Bilirubin, total 0.2 0.1 - 1.2 mg/dL EDMUND Comment:Testing performed by : [address] [address] Protein, pl 7.7 6.5 - 8.5 g/dL EDMUND Comment:Testing performed by : [address] [address] Albumin 4.6 3.5 - 5.0 g/dL EDMUND Comment:Testing performed by : [address] [address] Alk phos 80 40 - 130 Units/L EDMUND Comment:Testing performed by : [address] [address] ALT 31 7 - 55 Units/L EDMUND Comment:Testing performed by : [address] [address] AST 24 10 - 50 Units/L EDMUND Comment:Testing performed by : [address] [address] Blood 10/19/2024 3:12 PM CDT 10/19/2024 3:17 PM CDT us Mala RICHTER LAB BLOOD ORDERABLES Final Resu lt EDMUND [address] [facility] [place] [address] * ECG 12 lead (10/19/2024 3:11 PM CDT) Ventricular Rate EKG/Min 67 BPM [facility] Atrial Rate 67 BPM [facility] NH-Interval (MSEC) 144 ms [facility] QRS-Interval (MSEC) 102 ms [facility] QT-Interval (MSEC) 372 ms [facility] QTc 393 ms [facility] P [place] 32 degrees [facility] R [place] 4 degrees [facility] T [place] 6 degrees [facility] Diagnosis Normal sinus rhythm Minimal voltage criteria for LVH, may be normal variant When compared with ECG of 29-JUN-2009 17:19, No significant change was found Confirmed by SULTAN MARTIN M.D. ([id number]) on 10/19/2024 4:28:02 PM [facility] 10/19/2024 3:11 PM CDT 10/19/2024 4:28 PM CDT Mala RICHTER ECG ORDERABLES Final Result [facility] from Last 3 Months Insurance [facility] Care Teams Corduroy Brusher Operator Relationship Specialty Start Date End Date Natali Mcghee PA PCP - General Physician Insulator Tester 10/19/24
--- OUTSIDE RECORDS SUMMARY | 2024-12-09 14:15 | XMS_ITS | Clinical Summary ---
Author Organization 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
--- OUTSIDE RECORDS SUMMARY | 2024-12-09 14:15 | XMS_ITS | Patient Health Record ---
Author Organization [facility] Address [address] [place] [address] Care Team Providers Care Sr. Director Name Role Phone Franc Dickinson Primary Care Provider Reason For Referral No Information Immunizations Vaccine Route Administration Date Status Comme nts COVID-19 Moderna 2nd IM Intramuscular 10/05/2020 Administe red COVID-19 Moderna 1ST IM Intramuscular 09/07/2020 Administe red Plan Of Treatment No Information
--- OUTSIDE RECORDS SUMMARY | 2024-12-09 14:15 | XMS_ITS | Referral Summary ---
Author Organization [facility] Address [address] [place] [id number] Care Team Providers Care Assistant Executive Housekeeper Name Role Phone Natali Mcghee Primary Care Provider + Encounters Date Type Department Care Team Description 10/19/2024 4:12 PM CDT - 10/19/2024 6:35 PM CDT Emergency [facility] Emergency Department [address] [place] [id number] Acute bilateral low back pain without sciatica (Primary Dx) Discharge Disposition: Discharge to home or self care from Last 3 Months Allergies Active Allergy Reactions Criticality Noted Date [...] for muscle spasms 20 tablet 10/19/2024 Active Social History Tobacco Use Types Packs/Day Years Used Date Smoking Tobacco: Never Assessed Personal Safety Answer Date Recorded Have you ever been in or are you currently in a harmful physical or emotional relationship or is someone making you feel afraid or unsafe? 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 Testing performed by: [facility], [address] [place] [address]., [address] Trop T hs delta 1 ng/L EDMUND ROB Comment:Testing performed by : [facility], [address] [place] [address]., [address] Trop T hs interp Insignificant EDMUND ROB Comment:Testing performed by : [facility], [address] [place] [address]., [address] Blood 10/19/2024 5:31 PM CDT 10/19/2024 5:35 PM CDT Mala RICHTER LAB BLOOD ORDERABLES Final Resu lt EDMUND [address] [facility] Department [place] [address] * N. gonorrhoeae/C. trachomatis Amplification Urine (10/19/2024 4:45 PM CDT) [facility] C. trachomatis Not Detected Not Detected Comment:Testing performed by : [address] [address] N. gonorrhoeae Not Detected Not Detected EDMUND Comment: Interpretive Data This assay detects Chlamydia trachomatis and Neisseria gonorrhoeae by nucleic acid amplification testing (NAAT). This assay has been cleared by the [place] Food and Drug administration. The performance characteristics of this test have been verified by the [facility]. The performance characteristics of this test have not been evaluated in individuals less than 14 years of age. Current Interpretive Data last revised 2023. Testing performed by: [facility], [address] [place] [address]., [id number] Urine (None) 10/19/2024 4:45 PM CDT 10/19/2024 4:53 PM CDT La Nena RICHTER LAB MICROBIOLOGY - GEN ERAL ORDERABLES Final Result EDMUND [address] [facility] Department [place] [address] * CT Abdomen Pelvis WO Contrast (10/19/2024 [...] Electronically signed by Stu Romero M.D. MM: PIERCE Report ID: [id number] Reading Location: [place] [address] Procedure Note Stu Romero MD - 10/19/2024 [...] MUSCULOSKELETAL: Moderate degenerative disease at L5-S1. left [id number] foraminal stenosis. No acute fracture. OTHER: Trace fat containing left inguinal hernia. IMPRESSION: No acute abnormality in the abdomen or pelvis. No evidence of renal calculi or hydronephrosis. Mild hepatic steatosis. Mild colonic diverticulosis. THIS IS AN ELECTRONICALLY VERIFIED FINAL REPORT 10/19/2024 4:45 PM - Electronically signed by Stu Romero M.D. MM: MM Report ID: [id number] Reading Location: [place] [address] Malastephani Kearns NEELAM IMGladys CT PROCEDURES Final Result * (ABNORMAL) Urinalysis reflex to microscopic and culture Urine (10/19/2024 3:14 PM CDT) Color, ur Straw Yellow Comment:Testing performed by : [address] [address] Clarity, ur Clear Clear EDMUND Comment:Testing performed by : [address] [address] Specific gravity, ur 1.017 1.003 - 1.030 EDMUND Comment:Testing performed by : [address] [address] pH, urine 7.0 EDMUND Comment: Interpretive Data U rine pH is affected by diet, medications, systemic acid-base disturbances, and renal tubular function. pH may affect urinary stone formation. For example, urine pH below 6.0 may help reduce the tendency for calcium phosphate stones and pH greater than 6.0 may reduce the tendency for uric acid stone formation. Source: [place] [facility] Current Interpretive Data was last revised on 2017 Testing performed by: [address] [address] Protein, ur ql Negative Negative EDMUND Comment:Testing performed by : [address] [address] Glucose, ur ql 3+(A) Negative EDMUND Comment:Testing performed by : [address] [address] Ketones, ur Negative Negative EDMUND Comment:Testing performed by : [address] [address] Bilirubin, ur Negative Negative EDMUND Comment:Testing performed by : [address] [address] Blood, ur Negative Negative EDMUND Comment:Testing performed by : [address] [address] Urobilinogen, ur <2.0 <2.0 mg/dL EDMUND Comment:Testing performed by : [facility], [address] [place] [address]., [address] Nitrite, ur Negative Negative EDMUND Comment:Testing performed by : [facility], [address] [place] [address]., [address] Leukocyte esterase, ur Negative Negative EDMUND Comment:Testing performed by : [address] [address] UA reflex comment Reflex conditions for microscopic UA and culture not met. EDMUND Comment:Testing performed by : [facility], [address] [place] [address]., [address] Urine 10/19/2024 3:14 PM CDT 10/19/2024 3:17 PM CDT Mala RICHTER LAB MICROBIOLOGY - GENERAL ORDE RABLES Final Result Performing Organization Address [facility] de Phone Number [address] [place] [address] * Troponin T high-sensitivity series (baseline, 2hr, 4hr, 6hr) (10/19/2024 3:12 PM CDT) Trop T hs <6 <=22 ng/L Comment: Interpretive Data For further hscTnT resources including the diagnostic algorithm and an aid in interpretation, copy and paste this link: https://nrl.testcatalog.org/show/hsTrop Current Interpretive Data last revised 2020. Testing performed by: [address] [address] Blood 10/19/2024 3:12 PM CDT 10/19/2024 3:17 PM CDT us Mala RICHTER LAB BLOOD ORDERABLES Final Resu lt Performing Organization Address City/[facility]/ZIP Co de Phone Number JEANIE[address] [place] [address] * eGFR (10/19/2024 3:12 PM CDT) eGFR [...] was last reviewed 2021. Testing performed by: [address] [address] Blood 10/19/2024 3:12 PM CDT 10/19/2024 3:17 PM CDT us Mala RICHTER LAB BLOOD ORDERABLES Final Resu lt EDMUND [address] [facility] Department [place] [address] * Differential, auto (10/19/2024 3:12 PM CDT) Pathologist [facility] Neutrophil abs 4.11 1.50 - 6.50 K/cumm Comment:Testing performed by : [address] [address] Imm gran abs 0.02 0.00 - 0.10 K/cumm EDMUND ROB Comment:Testing performed by : [address] [address] Lymphocyte abs 2.16 0.80 - 3.30 K/cumm EDMUND ROB Comment:Testing performed by : [address] [address] Monocyte abs 0.59 0.20 - 0.80 K/cumm [facility] Comment:Testing performed by : [address] [address] Eosinophil abs 0.08 0.00 - 0.50 K/cumm [facility] Comment:Testing performed by : [address] [address] Basophil abs 0.07 0.00 - 0.10 K/cumm [facility] Comment:Testing performed by : [address] [address] Neutrophil pct 58.5 % [facility] Comment: Interpretive Data Percent cell count reference ranges are not reported, since discordance with absolute values may lead to misinterpretation of CBC data. Current Interpretive Data was last revised on 2017. Testing performed by: [address] [address] Imm gran pct 0.3 % [facility] Comment: Interpretive Data Percent cell count reference ranges are not reported, since discordance with absolute values may lead to misinterpretation of CBC data. Current Interpretive Data was last revised on 2017. Testing performed by: [address] [address] Lymphocyte pct 30.7 % [facility] Comment: Interpretive Data Percent cell count reference ranges are not reported, since discordance with absolute values may lead to misinterpretation of CBC data. Current Interpretive Data was last revised on 2017. Testing performed by: [address] [address] Monocyte pct 8.4 % [facility] Comment: Interpretive Data Percent cell count reference ranges are not reported, since discordance with absolute values may lead to misinterpretation of CBC data. Current Interpretive Data was last revised on 2017. Testing performed by: [address] [address] Eosinophil pct 1.1 % [facility] Comment: Interpretive Data Percent cell count reference ranges are not reported, since discordance with absolute values may lead to misinterpretation of CBC data. Current Interpretive Data was last revised on 2017. Testing performed by: [address] [address] Basophil pct 1.0 % EDMUND Comment: Interpretive Data Percent cell count reference ranges are not reported, since discordance with absolute values may lead to misinterpretation of CBC data. Current Interpretive Data was last revised on 2017. Testing performed by: [address] [address] Blood 10/19/2024 3:12 PM CDT 10/19/2024 3:17 PM CDT us Mala RICHTER LAB BLOOD ORDERABLES Final Resu lt EDMUND [address] [facility] Department [place] [address] * CBC with auto differential (10/19/2024 3:12 PM CDT) WBC 7.03 3.80 - 9.90 K/cumm Comment:Testing performed by : [address] [address] Hgb 14.4 13.0 - 17.5 g/dL EDMUND ROB Comment:Testing performed by : [address] [address] Hct 41.8 38.9 - 50.3 % EDMUND ROB Comment:Testing performed by : [address] [address] Plt 244 150 - 400 K/cumm EDMUND Comment:Testing performed by : [address] [address] MPV 10.5 9.1 - 12.3 fL EDMUND ROB Comment:Testing performed by : [address] [address] RBC 4.89 4.30 - 5.80 M/cumm EDMUND RBO Comment:Testing performed by : [address] [address] MCV 85.5 81.3 - 96.4 fL EDMUND ROB Comment:Testing performed by : [address] [address] MCH 29.4 27.1 - 33.3 pg EDMUND ROB Comment:Testing performed by : [address] [address] MCHC 34.4 32.3 - 35.7 g/dL EDMUND ROB Comment:Testing performed by : [address] [address] RDW CV 12.2 11.1 - 14.9 % EDMUND ROB Comment:Testing performed by : [address] [address] RDW SD 37.8 35.7 - 48.1 fL EDMUND ROB Comment:Testing performed by : [address] [address] NRBC abs 0.00 0.00 - 0.01 K/cumm EDMUND ROB Comment:Testing performed by : [address], [address] Blood Venous blood specimen / Unknown 10/19/2024 3:12 PM CDT 10/19/2024 3:17 PM CDT Mala RICHTER LAB BLOOD ORDERABLES Final Resu lt Performing Organization Address City/[facility]/ZIP Co de Phone Number [address] [place] [address] * Lipase (10/19/2024 3:12 PM CDT) Lipase 32 10 - 99 Units/L Comment:Testing performed by : [address], [address] Blood Venous blood specimen / Unknown 10/19/2024 3:12 PM CDT 10/19/2024 3:17 PM CDT Malastephani Kearns PA LAB BLOOD ORDERABLES Final Resu lt [address] [place] [address] * (ABNORMAL) Comprehensive metabolic panel (10/19/2024 3:12 PM CDT) Sodium 140 135 - 145 mmol/L Comment:Testing performed by : [address] [address] Potassium, pl 3.9 3.3 - 4.9 mmol/L EDMUND Comment:Testing performed by : [address], [place]., [address] Chloride 103 97 - 110 mmol/L [facility] Comment:Testing performed by : [address], [place]., [address] CO2 25 22 - 32 mmol/L [facility] Comment:Testing performed by : [address] [address] Anion gap 12 2 - 15 mmol/L [facility] Comment:Testing performed by : [address], [place]., [address] BUN 16 6 - 25 mg/dL [facility] Comment:Testing performed by : [address] [address] Creatinine 0.70(L) 0.80 - 1.30 mg/dL [facility] Comment:Testing performed by : [address] [address] Glucose 136 70 - 199 mg/dL [facility] Comment: Interpretive Data Fasting glucose >/= 126 [...] classification and Diagnosis of Diabetes Diabetes Care 2021; 46: S19-S40. Current interpretive data was last revised 2022. Testing performed by: [address] [address] Calcium 9.3 8.5 - 10.3 mg/dL [facility] Comment:Testing performed by : [address] [address] Bilirubin, total 0.2 0.1 - 1.2 mg/dL EDMUND ROB Comment:Testing performed by : [address] [address] Protein, pl 7.7 6.5 - 8.5 g/dL EDMUND ROB Comment:Testing performed by : [address] [address] Albumin 4.6 3.5 - 5.0 g/dL EDMUND Comment:Testing performed by : [address] [address] Alk phos 80 40 - 130 Units/L EDMUND Comment:Testing performed by : [address] [address] ALT 31 7 - 55 Units/L EDMUND Comment:Testing performed by : [address] [address] AST 24 10 - 50 Units/L EDMUND Comment:Testing performed by : [address] [address] Blood 10/19/2024 3:12 PM CDT 10/19/2024 3:17 PM CDT us Mala RICHTER LAB BLOOD ORDERABLES Final Resu lt EDMUND [address] [facility] Department [place] [address] * ECG 12 lead (10/19/2024 3:11 PM CDT) Ventricular Rate EKG/Min 67 BPM [facility] Atrial Rate [address] [facility] [place]-Interval (MSEC) [address] [facility] QRS-Interval (MSEC) [address] [facility] QT-Interval (MSEC) [address] [facility] QTc [address] [facility] P [place] [address] [facility] R [place] 4 degrees [facility] T [place] [address] [facility] Diagnosis Normal sinus rhythm Minimal voltage criteria for LVH, may be normal variant When compared with ECG of 29-JUN-2009 17:19, No significant change was found Confirmed by SULTAN MARTIN M.D. ([id number]) on 10/19/2024 4:28:02 PM [facility] 10/19/2024 3:11 PM CDT 10/19/2024 4:28 PM CDT us Mala RICHTER ECG ORDERABLES Final Result [facility] [place] from Last 3 Months Insurance [facility] Care Teams Assistant Executive Housekeeper Relationship Specialty Start Date End Date Natali Mcghee PA PCP - General Physician In Store Representative 10/19/24
[2024-12-09 14:16] VITALS: BP 134/81; PULSE 90; RESP 16; TEMP 36.4; O2SAT 98
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
--- OUTSIDE RECORDS SUMMARY | 2024-12-09 17:39 | XMS_ITS | Clinical Summary ---
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 Testing performed by: [address] [address] Trop T hs delta 1 ng/L EDMUND ROB Comment:Testing performed by : [address] [address] Trop T hs interp Insignificant EDMUND ROB Comment:Testing performed by : [address] [address] Blood 10/19/2024 5:31 PM CDT 10/19/2024 5:35 PM CDT us Mala RICHTER LAB BLOOD ORDERABLES Final Resu lt EDMUND ROB [address] [facility] [place] [address] * N. gonorrhoeae/C. trachomatis Amplification Urine (10/19/2024 4:45 PM CDT) [facility] C. trachomatis Not Detected Not Detected Comment:Testing performed by : [address] [address] N. gonorrhoeae Not Detected Not Detected EDMUND ROB Comment: Interpretive Data This assay detects Chlamydia trachomatis and Neisseria gonorrhoeae by nucleic acid amplification testing (NAAT). This assay has been cleared by the [place] Food and Drug administration. The performance characteristics of this test have been verified by the [facility]. The performance characteristics of this test have not been evaluated in individuals less than 14 years of age. Current Interpretive Data last revised 2023. Testing performed by: [facility], [address] [place] [address]., [address] Urine (None) 10/19/2024 4:45 PM CDT 10/19/2024 4:53 PM CDT La Nena RICHTER LAB MICROBIOLOGY - GEN ERAL ORDERABLES Final Result EDMUND [address] [facility] [place] [address] * CT Abdomen Pelvis WO Contrast (10/19/2024 [...] Stu Romero M.D. 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 No acute fracture. OTHER: Trace fat containing left inguinal hernia. IMPRESSION: No acute abnormality in the abdomen or pelvis. No evidence of renal calculi or hydronephrosis. Mild hepatic steatosis. Mild colonic diverticulosis. THIS IS AN ELECTRONICALLY VERIFIED FINAL REPORT 10/19/2024 4:45 PM - Electronically signed by Stu Romero M.D. MM: MM Report ID: [id number] Reading Location: [place] [address] Mala RICHTER [facility] [place] PROCEDURES Final Result * (ABNORMAL) Urinalysis reflex to microscopic and culture Urine (10/19/2024 3:14 PM CDT) Color, ur Straw Yellow Comment:Testing performed by : [address] [address] Clarity, ur Clear Clear EDMUND Comment:Testing performed by : [address] [address] Specific gravity, ur 1.017 1.003 - 1.030 EDMUND Comment:Testing performed by : [address] [address] pH, urine 7.0 EDMUND Comment: Interpretive Data U rine pH is affected by diet, medications, systemic acid-base disturbances, and renal tubular function. pH may affect urinary stone formation. For example, urine pH below 6.0 may help reduce the tendency for calcium phosphate stones and pH greater than 6.0 may reduce the tendency for uric acid stone formation. Source: [employer] Current Interpretive Data was last revised on 2017 Testing performed by: [address] [address] Protein, ur ql Negative Negative EDMUND Comment:Testing performed by : [facility], [address] [place] [address], [place]., [address] Glucose, ur ql 3+(A) Negative EDMUND Comment:Testing performed by : [address], [place]., [address] Ketones, ur Negative Negative EDMUND Comment:Testing performed by : [address], [place]., [address] Bilirubin, ur Negative Negative EDMUND Comment:Testing performed by : [address], [place]., [address] Blood, ur Negative Negative EDMUND Comment:Testing performed by : [address], [place]., [address] Urobilinogen, ur <2.0 <2.0 mg/dL EDMUND Comment:Testing performed by : [address], [place]., [address] Nitrite, ur Negative Negative EDMUND Comment:Testing performed by : [address], [place]., [address] Leukocyte esterase, ur Negative Negative EDMUND Comment:Testing performed by : [address], [place]., [address] UA reflex comment Reflex conditions for microscopic UA and culture not met. EDMUND Comment:Testing performed by : [address], [place]., [address] Urine 10/19/2024 3:14 PM CDT 10/19/2024 3:17 PM CDT Mala RICHTER LAB MICROBIOLOGY - GENERAL ORDJosefina RUSSO Final Result EDMUND [address] [facility] Department [place] [address] * Troponin T high-sensitivity series (baseline, 2hr, 4hr, 6hr) (10/19/2024 3:12 PM CDT) Trop T hs <6 <=22 ng/L Comment: Interpretive Data For further hscTnT resources including the diagnostic algorithm and an aid in interpretation, copy and paste this link: https://nrl.testcatalog.org/show/hsTrop Current Interpretive Data last revised 2020. Testing performed by: [address] [address] Blood 10/19/2024 3:12 PM CDT 10/19/2024 3:17 PM CDT Mala RICHTER LAB BLOOD ORDERABLES Final Resu lt Performing Organization Address [facility] Co de Phone Number EDMUND [address] [place] [address] * eGFR (10/19/2024 3:12 PM CDT) eGFR [...] was last reviewed 2021. Testing performed by: [address] [address] Blood 10/19/2024 3:12 PM CDT 10/19/2024 3:17 PM CDT Mala RICHTER LAB BLOOD ORDERABLES Final Resu lt Performing Organization Address City/[facility]/ZIP Co de Phone Number EDMUND [address] [place] [address] * Differential, auto (10/19/2024 3:12 PM CDT) Neutrophil abs 4.11 1.50 - 6.50 K/cumm Comment:Testing performed by : [address] [address] Imm gran abs 0.02 0.00 - 0.10 K/cumm EDMUND Comment:Testing performed by : [address] [address] Lymphocyte abs 2.16 0.80 - 3.30 K/cumm [facility] Comment:Testing performed by : [address] [address] Monocyte abs 0.59 0.20 - 0.80 K/cumm [facility] Comment:Testing performed by : [address] [address] Eosinophil abs 0.08 0.00 - 0.50 K/cumm [facility] Comment:Testing performed by : [address] [address] Basophil abs 0.07 0.00 - 0.10 K/cumm [facility] Comment:Testing performed by : [address] [address] Neutrophil pct 58.5 % [facility] Comment: Interpretive Data Percent cell count reference ranges are not reported, since discordance with absolute values may lead to misinterpretation of CBC data. Current Interpretive Data was last revised on 2017. Testing performed by: [address] [address] Imm gran pct 0.3 % [facility] Comment: Interpretive Data Percent cell count reference ranges are not reported, since discordance with absolute values may lead to misinterpretation of CBC data. Current Interpretive Data was last revised on 2017. Testing performed by: [address] [address] Lymphocyte pct 30.7 % [facility] Comment: Interpretive Data Percent cell count reference ranges are not reported, since discordance with absolute values may lead to misinterpretation of CBC data. Current Interpretive Data was last revised on 2017. Testing performed by: [address] [address] Monocyte pct 8.4 % EDMUND Comment: Interpretive Data Percent cell count reference ranges are not reported, since discordance with absolute values may lead to misinterpretation of CBC data. Current Interpretive Data was last revised on 2017. Testing performed by: [address] [address] Eosinophil pct 1.1 % EDMUND Comment: Interpretive Data Percent cell count reference ranges are not reported, since discordance with absolute values may lead to misinterpretation of CBC data. Current Interpretive Data was last revised on 2017. Testing performed by: [address] [address] Basophil pct 1.0 % EDMUND Comment: Interpretive Data Percent cell count reference ranges are not reported, since discordance with absolute values may lead to misinterpretation of CBC data. Current Interpretive Data was last revised on 2017. Testing performed by: [address] [address] Blood 10/19/2024 3:12 PM CDT 10/19/2024 3:17 PM CDT Mala RICHTER LAB BLOOD ORDERABLES Final Resu lt [facility] [address] [facility] Department of Laboratories [place], [place] [id number] * CBC with auto differential (10/19/2024 3:12 PM CDT) WBC 7.03 3.80 - 9.90 K/cumm Comment:Testing performed by : [address] [address] Hgb 14.4 13.0 - 17.5 g/dL EDMUND ROB Comment:Testing performed by : [address] [address] Hct 41.8 38.9 - 50.3 % EDMUND Comment:Testing performed by : [address] [address] Plt 244 150 - 400 K/cumm EDMUND Comment:Testing performed by : [address], [address] MPV 10.5 9.1 - 12.3 fL EDMUND Comment:Testing performed by : [address] [address] RBC 4.89 4.30 - 5.80 M/cumm EDMUND Comment:Testing performed by : [address] [address] MCV 85.5 81.3 - 96.4 fL EDMUND Comment:Testing performed by : [address], [address] MCH 29.4 27.1 - 33.3 pg EDMUND Comment:Testing performed by : [address], [address] MCHC 34.4 32.3 - 35.7 g/dL EDMUND Comment:Testing performed by : [address], [address] RDW CV 12.2 11.1 - 14.9 % EDMUND Comment:Testing performed by : [address], [address] RDW SD 37.8 35.7 - 48.1 fL EDMUND Comment:Testing performed by : [address], [address] NRBC abs 0.00 0.00 - 0.01 K/cumm EDMUND Comment:Testing performed by : [address], [address] Blood Venous blood specimen / Unknown 10/19/2024 3:12 PM CDT 10/19/2024 3:17 PM CDT us Mala RICHTER LAB BLOOD ORDERABLES Final Resu lt EDMUND [address] [facility] Department [place] [address] * Lipase (10/19/2024 3:12 PM CDT) Lipase 32 10 - 99 Units/L Comment:Testing performed by : [address] [address] Blood Venous blood specimen / Unknown 10/19/2024 3:12 PM CDT 10/19/2024 3:17 PM CDT Mala RICHTER LAB BLOOD ORDERABLES Final Resu lt [facility] [address] [facility] Department [place] [address] * (ABNORMAL) Comprehensive metabolic panel (10/19/2024 3:12 PM CDT) Pathologist [facility] Sodium 140 135 - 145 mmol/L Comment:Testing performed by : [address] [address] Potassium, pl 3.9 3.3 - 4.9 mmol/L EDMUND Comment:Testing performed by : [address] [address] Chloride 103 97 - 110 mmol/L EMDUND Comment:Testing performed by : [address] [address] CO2 25 22 - 32 mmol/L EDMUND Comment:Testing performed by : [address] [address] Anion gap 12 2 - 15 mmol/L EDMUND Comment:Testing performed by : [address] [address] BUN 16 6 - 25 mg/dL EDMUND Comment:Testing performed by : [address] [address] Creatinine 0.70(L) 0.80 - 1.30 mg/dL EDMUND Comment:Testing performed by : [address] [address] Glucose 136 70 - 199 mg/dL EDMUND [...] was last revised 2022. Testing performed by: [address] [address] Calcium 9.3 8.5 - 10.3 mg/dL EDMUND Comment:Testing performed by : [address] [address] Bilirubin, total 0.2 0.1 - 1.2 mg/dL EDMUND Comment:Testing performed by : [address] [address] Protein, pl 7.7 6.5 - 8.5 g/dL EDMUND Comment:Testing performed by : [address] [address] Albumin 4.6 3.5 - 5.0 g/dL EDMUND Comment:Testing performed by : [address] [address] Alk phos 80 40 - 130 Units/L EDMUND Comment:Testing performed by : [address] [address] ALT 31 7 - 55 Units/L EDMUND Comment:Testing performed by : [address] [address] AST 24 10 - 50 Units/L EDMUND Comment:Testing performed by : [address] [address] Blood 10/19/2024 3:12 PM CDT 10/19/2024 3:17 PM CDT us Mala RICHTER LAB BLOOD ORDERABLES Final Resu lt EDMUND [address] [facility] [place] [address] * ECG 12 lead (10/19/2024 3:11 PM CDT) Ventricular Rate EKG/Min 67 BPM [facility] Atrial Rate 67 BPM [facility] IN-Interval (MSEC) 144 ms [facility] QRS-Interval (MSEC) 102 ms [facility] QT-Interval (MSEC) 372 ms [facility] QTc 393 ms [facility] P [place] 32 degrees [facility] R [place] 4 degrees [facility] T [place] 6 degrees [facility] Diagnosis Normal sinus rhythm Minimal voltage criteria for LVH, may be normal variant When compared with ECG of 29-JUN-2009 17:19, No significant change was found Confirmed by SULTAN MARTIN M.D. ([id number]) on 10/19/2024 4:28:02 PM [facility] 10/19/2024 3:11 PM CDT 10/19/2024 4:28 PM CDT Mala RICHTER ECG ORDERABLES Final Result [facility] from Last 3 Months Insurance [facility] Care Teams Drawing Checker Relationship Specialty Start Date End Date Natali Mcghee PA PCP - General Physician Programming Director 10/19/24
--- OUTSIDE RECORDS SUMMARY | 2024-12-09 17:39 | XMS_ITS | Clinical Summary ---
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
--- OUTSIDE RECORDS SUMMARY | 2024-12-09 17:39 | XMS_ITS | Referral Summary ---
Author Organization 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 Testing performed by: [facility], [address] [place] [address]., [address] Trop T hs delta 1 ng/L EDMUND ROB Comment:Testing performed by : [facility], [address] [place] [address]., [address] Trop T hs interp Insignificant EDMUND ROB Comment:Testing performed by : [facility], [address] [place] [address]., [address] Blood 10/19/2024 5:31 PM CDT 10/19/2024 5:35 PM CDT Mala RICHTER LAB BLOOD ORDERABLES Final Resu lt EDMUND [address] [facility] Department [place] [address] * N. gonorrhoeae/C. trachomatis Amplification Urine (10/19/2024 4:45 PM CDT) [facility] C. trachomatis Not Detected Not Detected Comment:Testing performed by : [address] [address] N. gonorrhoeae Not Detected Not Detected EDMUND Comment: Interpretive Data This assay detects Chlamydia trachomatis and Neisseria gonorrhoeae by nucleic acid amplification testing (NAAT). This assay has been cleared by the [place] Food and Drug administration. The performance characteristics of this test have been verified by the [facility]. The performance characteristics of this test have not been evaluated in individuals less than 14 years of age. Current Interpretive Data last revised 2023. Testing performed by: [facility], [address] [place] [address]., [address] Urine (None) 10/19/2024 4:45 PM CDT 10/19/2024 4:53 PM CDT La Nena RICHTER LAB MICROBIOLOGY - GEN ERAL ORDERABLES Final Result EDMUND [address] [facility] Department [place] [address] * CT Abdomen Pelvis WO [...] Stu Romero M.D. MM: PIERCE Report ID: [id number] Reading Location: [place] [address] Procedure Note Stu Romero MD - 10/19/2024 [...] MUSCULOSKELETAL: Moderate degenerative disease at L5-S1. left L5-V4qausnt foraminal stenosis. No acute fracture. OTHER: Trace fat containing left inguinal hernia. IMPRESSION: No acute abnormality in the abdomen or pelvis. No evidence of renal calculi or hydronephrosis. Mild hepatic steatosis. Mild colonic diverticulosis. THIS IS AN ELECTRONICALLY VERIFIED FINAL REPORT 10/19/2024 4:45 PM - Electronically signed by Stu Romero M.D. MM: MM Report ID: [id number] Reading Location: [place] [address] Malastephani Kearns NEELAM IMGladys CT PROCEDURES Final Result * (ABNORMAL) Urinalysis reflex to microscopic and culture Urine (10/19/2024 3:14 PM CDT) Color, ur Straw Yellow Comment:Testing performed by : [address] [address] Clarity, ur Clear Clear EDMUND Comment:Testing performed by : [address] [address] Specific gravity, ur 1.017 1.003 - 1.030 EDMUND Comment:Testing performed by : [address] [address] pH, urine 7.0 EDMUND Comment: Interpretive Data U rine pH is affected by diet, medications, systemic acid-base disturbances, and renal tubular function. pH may affect urinary stone formation. For example, urine pH below 6.0 may help reduce the tendency for calcium phosphate stones and pH greater than 6.0 may reduce the tendency for uric acid stone formation. Source: [employer] Current Interpretive Data was last revised on 2017 Testing performed by: [address] [address] Protein, ur ql Negative Negative EDMUND Comment:Testing performed by : [address] [address] Glucose, ur ql 3+(A) Negative EDMUND Comment:Testing performed by : [address] [address] Ketones, ur Negative Negative EDMUND Comment:Testing performed by : [address] [address] Bilirubin, ur Negative Negative EDMUND Comment:Testing performed by : [address] [address] Blood, ur Negative Negative EDMUND Comment:Testing performed by : [address] [address] Urobilinogen, ur <2.0 <2.0 mg/dL EDMUND Comment:Testing performed by : [facility], [address] [place] [address]., [address] Nitrite, ur Negative Negative EDMUND Comment:Testing performed by : [facility], [address] [place] [address]., [address] Leukocyte esterase, ur Negative Negative EDMUND Comment:Testing performed by : [address] [address] UA reflex comment Reflex conditions for microscopic UA and culture not met. EDMUND Comment:Testing performed by : [facility], [address] [place] [address]., [address] Urine 10/19/2024 3:14 PM CDT 10/19/2024 3:17 PM CDT Mala RICHTER LAB MICROBIOLOGY - GENERAL ORDE RABLES Final Result Performing Organization Address [facility] de Phone Number [address] [place] [address] * Troponin T high-sensitivity series (baseline, 2hr, 4hr, 6hr) (10/19/2024 3:12 PM CDT) Trop T hs <6 <=22 ng/L Comment: Interpretive Data For further hscTnT resources including the diagnostic algorithm and an aid in interpretation, copy and paste this link: https://nrl.testcatalog.org/show/hsTrop Current Interpretive Data last revised 2020. Testing performed by: [address] [address] Blood 10/19/2024 3:12 PM CDT 10/19/2024 3:17 PM CDT us Mala RICHTER LAB BLOOD ORDERABLES Final Resu lt Performing Organization Address City/[facility]/ZIP Co de Phone Number JEANIE[address] [place] [address] * eGFR (10/19/2024 3:12 PM CDT) eGFR [...] was last reviewed 2021. Testing performed by: [address] [address] Blood 10/19/2024 3:12 PM CDT 10/19/2024 3:17 PM CDT us Mala RICHTER LAB BLOOD ORDERABLES Final Resu lt EDMUND [address] [facility] Department [place] [address] * Differential, auto (10/19/2024 3:12 PM CDT) Pathologist [facility] Neutrophil abs 4.11 1.50 - 6.50 K/cumm Comment:Testing performed by : [address] [address] Imm gran abs 0.02 0.00 - 0.10 K/cumm EDMUND ROB Comment:Testing performed by : [address] [address] Lymphocyte abs 2.16 0.80 - 3.30 K/cumm EDMUND ROB Comment:Testing performed by : [address] [address] Monocyte abs 0.59 0.20 - 0.80 K/cumm [facility] Comment:Testing performed by : [address] [address] Eosinophil abs 0.08 0.00 - 0.50 K/cumm [facility] Comment:Testing performed by : [address] [address] Basophil abs 0.07 0.00 - 0.10 K/cumm [facility] Comment:Testing performed by : [address] [address] Neutrophil pct 58.5 % [facility] Comment: Interpretive Data Percent cell count reference ranges are not reported, since discordance with absolute values may lead to misinterpretation of CBC data. Current Interpretive Data was last revised on 2017. Testing performed by: [address] [address] Imm gran pct 0.3 % [facility] Comment: Interpretive Data Percent cell count reference ranges are not reported, since discordance with absolute values may lead to misinterpretation of CBC data. Current Interpretive Data was last revised on 2017. Testing performed by: [address] [address] Lymphocyte pct 30.7 % [facility] Comment: Interpretive Data Percent cell count reference ranges are not reported, since discordance with absolute values may lead to misinterpretation of CBC data. Current Interpretive Data was last revised on 2017. Testing performed by: [address] [address] Monocyte pct 8.4 % [facility] Comment: Interpretive Data Percent cell count reference ranges are not reported, since discordance with absolute values may lead to misinterpretation of CBC data. Current Interpretive Data was last revised on 2017. Testing performed by: [address] [address] Eosinophil pct 1.1 % [facility] Comment: Interpretive Data Percent cell count reference ranges are not reported, since discordance with absolute values may lead to misinterpretation of CBC data. Current Interpretive Data was last revised on 2017. Testing performed by: [address] [address] Basophil pct 1.0 % EDMUND Comment: Interpretive Data Percent cell count reference ranges are not reported, since discordance with absolute values may lead to misinterpretation of CBC data. Current Interpretive Data was last revised on 2017. Testing performed by: [address] [address] Blood 10/19/2024 3:12 PM CDT 10/19/2024 3:17 PM CDT us Mala RICHTER LAB BLOOD ORDERABLES Final Resu lt EDMUND [address] [facility] Department [place] [address] * CBC with auto differential (10/19/2024 3:12 PM CDT) WBC 7.03 3.80 - 9.90 K/cumm Comment:Testing performed by : [address] [address] Hgb 14.4 13.0 - 17.5 g/dL EDMUND ROB Comment:Testing performed by : [address] [address] Hct 41.8 38.9 - 50.3 % EDMUND ROB Comment:Testing performed by : [address] [address] Plt 244 150 - 400 K/cumm EDMUND Comment:Testing performed by : [address] [address] MPV 10.5 9.1 - 12.3 fL EDMUND ROB Comment:Testing performed by : [address] [address] RBC 4.89 4.30 - 5.80 M/cumm EDMUND ROB Comment:Testing performed by : [address] [address] MCV 85.5 81.3 - 96.4 fL EDMUND ROB Comment:Testing performed by : [address] [address] MCH 29.4 27.1 - 33.3 pg EDMUND ROB Comment:Testing performed by : [address] [address] MCHC 34.4 32.3 - 35.7 g/dL EDUMND ROB Comment:Testing performed by : [address] [address] RDW CV 12.2 11.1 - 14.9 % EMDUND ROB Comment:Testing performed by : [address] [address] RDW SD 37.8 35.7 - 48.1 fL EDMUND ROB Comment:Testing performed by : [address] [address] NRBC abs 0.00 0.00 - 0.01 K/cumm EDMUND ROB Comment:Testing performed by : [address], [address] Blood Venous blood specimen / Unknown 10/19/2024 3:12 PM CDT 10/19/2024 3:17 PM CDT Mala RICHTER LAB BLOOD ORDERABLES Final Resu lt Performing Organization Address City/[facility]/ZIP Co de Phone Number [address] [place] [address] * Lipase (10/19/2024 3:12 PM CDT) Lipase 32 10 - 99 Units/L Comment:Testing performed by : [address], [address] Blood Venous blood specimen / Unknown 10/19/2024 3:12 PM CDT 10/19/2024 3:17 PM CDT Malastephani Kearns PA LAB BLOOD ORDERABLES Final Resu lt [address] [place] [address] * (ABNORMAL) Comprehensive metabolic panel (10/19/2024 3:12 PM CDT) Sodium 140 135 - 145 mmol/L Comment:Testing performed by : [address] [address] Potassium, pl 3.9 3.3 - 4.9 mmol/L EDMUND Comment:Testing performed by : [address], [place]., [address] Chloride 103 97 - 110 mmol/L [facility] Comment:Testing performed by : [address], [place]., [address] CO2 25 22 - 32 mmol/L [facility] Comment:Testing performed by : [address] [address] Anion gap 12 2 - 15 mmol/L [facility] Comment:Testing performed by : [address], [place]., [address] BUN 16 6 - 25 mg/dL [facility] Comment:Testing performed by : [address] [address] Creatinine 0.70(L) 0.80 - 1.30 mg/dL [facility] Comment:Testing performed by : [address] [address] Glucose 136 70 - 199 mg/dL [facility] Comment: Interpretive Data Fasting glucose >/= [...] was last revised 2022. Testing performed by: [address] [address] Calcium 9.3 8.5 - 10.3 mg/dL [facility] Comment:Testing performed by : [address] [address] Bilirubin, total 0.2 0.1 - 1.2 mg/dL EDMUND ROB Comment:Testing performed by : [address] [address] Protein, pl 7.7 6.5 - 8.5 g/dL EDMUND ROB Comment:Testing performed by : [address] [address] Albumin 4.6 3.5 - 5.0 g/dL EDMUND Comment:Testing performed by : [address] [address] Alk phos 80 40 - 130 Units/L EDMUND Comment:Testing performed by : [address] [address] ALT 31 7 - 55 Units/L EDMUND Comment:Testing performed by : [address] [address] AST 24 10 - 50 Units/L EDMUND Comment:Testing performed by : [address] [address] Blood 10/19/2024 3:12 PM CDT 10/19/2024 3:17 PM CDT us Mlaa RICHTER LAB BLOOD ORDERABLES Final Resu lt EDMUND [address] [facility] Department [place] [address] * ECG 12 lead (10/19/2024 3:11 PM CDT) Ventricular Rate EKG/Min 67 BPM [facility] Atrial Rate 67 BPM [facility] PA-Interval (MSEC) 144 ms [facility] QRS-Interval (MSEC) 102 ms [facility] QT-Interval (MSEC) 372 ms [facility] QTc 393 ms [facility] P Vass 32 degrees [facility] R Vass 4 degrees [facility] T Vass 6 degrees [facility] Diagnosis Normal sinus rhythm Minimal voltage criteria for LVH, may be normal variant When compared with ECG of 29-JUN-2009 17:19, No significant change was found Confirmed by SULTAN MARTIN M.D. ([id number]) on 10/19/2024 4:28:02 PM [facility] 10/19/2024 3:11 PM CDT 10/19/2024 4:28 PM CDT us Mala RICHTER ECG ORDERABLES Final Result [facility] [place] from Last 3 Months Insurance [facility] Care Teams Police Captain Relationship Specialty Start Date End Date Natali Mcghee PA PCP - General Physician Marriage Performer 10/19/24
[2024-12-09 18:45] LABS: Strep Group A RT-PCR NOT DETECTED (Negative)
[2024-12-09 18:56] LABS: Influenza A QL RT-PCR Negative (Negative); Influenza B QL RT-PCR Negative (Negative); RSV RNA, RT-PCR Negative (Negative); SARS-CoV-2 RNA PCR Negative (Negative)
[2024-12-09 19:09] VITALS: BP 143/94; PULSE 69; TEMP 36.9; O2SAT 98
== END 2024-12-09 19:15 | disposition home or self-care (01) ==
PROVIDERS: Physician Assistant; Emergency Provider Physician Assistant; PCP Physician Assistant
DX: J06.9 Acute upper respiratory infection, unspecified (principal); Z20.822 Contact with and (suspected) exposure to COVID-19
CPT/HCPCS: 71046; 87637; 87651; 99283

== ENCOUNTER 2025-04-20 16:09 | Emergency (ER) | payer OTHER, SELFPAY ==
[2025-04-20 16:16] VITALS: BP 137/80; PULSE 81; RESP 16; TEMP 36.4; O2SAT 99
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
[2025-04-20 16:49] LABS: EDCOVIDSCREEN Negative (Negative); EDINFLUASCREEN Negative (Negative); EDINFLUBSCREEN Negative (Negative); EDSTREPNEGPOS1 Negative (Negative)
== END 2025-04-20 17:21 | disposition home or self-care (01) ==
PROVIDERS: Emergency Provider Registered Nurse
DX: J02.9 Acute pharyngitis, unspecified (principal); R03.0 Elevated blood-pressure reading, without diagnosis of hypertension; Z20.822 Contact with and (suspected) exposure to COVID-19; K21.9 Gastro-esophageal reflux disease without esophagitis; F41.9 Anxiety disorder, unspecified
CPT/HCPCS: 87081; 87426; 87804; 87880; 99213; G0463

== ENCOUNTER 2025-05-14 00:08 | Emergency (ER) | payer OTHER, SELFPAY ==
--- OUTSIDE RECORDS SUMMARY | 2025-05-14 00:10 | XMS_ITS | Clinical Summary ---
Author Organization 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
--- OUTSIDE RECORDS SUMMARY | 2025-05-14 00:10 | XMS_ITS | Patient Health Record ---
Author Organization [facility] Address [address] [place] [address] Phone [phone] Care Team Providers Care Stna Name Role Phone Franc Dickinson Primary Care Provider Reason For Referral No Information Immunizations Status Vaccine Route Administration Date Visit Date Comments Administered COVID-19 Moderna 2nd IM Intramuscular 10/05/2020 COVID-19 Moderna 1ST IM Intramuscular 09/07/2020 Social History Sex Observation Social History Observation Description Sex Observation Male Plan Of Treatment No Information
--- OUTSIDE RECORDS SUMMARY | 2025-05-14 00:10 | XMS_ITS | Clinical Summary ---
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
[2025-05-14 00:40] VITALS: BP 142/78; PULSE 105; RESP 16; TEMP 36.7; O2SAT 100
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
[2025-05-14] MEDS: SERTRALINE HCL 50 MG TABLET 100 MG PO (02:50)
[2025-05-14 02:52] VITALS: BP 142/80; PULSE 67; RESP 18; TEMP 36.7; O2SAT 100
== END 2025-05-14 02:58 | disposition home or self-care (01) ==
PROVIDERS: Emergency Provider Student in an Organized Health Care Education/Training Program
DX: R51.9 Headache, unspecified (principal); R42 Dizziness and giddiness; T43.225A Adverse effect of selective serotonin reuptake inhibitors, initial encounter; Z76.0 Encounter for issue of repeat prescription; K21.9 Gastro-esophageal reflux disease without esophagitis; F41.9 Anxiety disorder, unspecified; F32.A Depression, unspecified
CPT/HCPCS: 99281; A9270